=== PATIENT | female | born 1960 | race African-American/Black ===

== ENCOUNTER → 2019-03-06 | Outpatient (CLI) | payer OTHER ==
[2019-03-06 09:24] LABS: Basophils # (auto) 0 uL; Eosinophils # (auto) 0.2 uL; Hemoglobin 11.9 g/dL (12.2-16.2); Monocytes # (auto) 0.4 uL; Neutrophils # (auto) 1.7 uL
[2019-03-06 09:27] LABS: Basophils % (auto) 0.6 % (0.0-2.0); Eosinophils % (auto) 4.6 % (0.0-7.0); Hematocrit 38.3 % (36.0-46.0); Lymphocytes # (auto) 2.3 uL; Lymphocytes % (auto) 49.4 % (10.0-50.0); Mean Corpuscular Hemoglobin 21.6 pg (28.0-32.0); Mean Corpuscular Hgb Conc. 31.1 g/dL (32.0-36.0); Mean Corpuscular Volume 69.5 fL (80.0-100.0); Monocytes % (auto) 9.1 % (0.0-12.0); Neutrophils % (auto) 36.3 % (37.0-80.0); Nucleated Red Blood Cells % 0.1 %; Platelet Count (auto) 284 10^3/uL (140-450); Red Blood Cells 5.51 10^6/uL (4.0-5.20); Red Cell Distribution Width 16.1 % (11.8-14.3); White Blood Cell 4.6 10^3/uL (4.4-10.8)
[2019-03-06 09:52] LABS: Potassium 4.1 mmol/L (3.5-5.1)
[2019-03-06 10:21] LABS: Albumin 3.3 g/dL (3.4-5.0); BUN/Creatinine Ratio 16.7; Bilirubin, Total 0.6 mg/dL (0.2-1.0); Calcium 8.6 mg/dL (8.5-10.1); Total Protein 7.9 g/dL (6.4-8.2)
== END | disposition home or self-care (01) ==
LOC: LAB 08:42
PROVIDERS: ATTEND Internal Medicine
DX: Z12.10 Encounter for screening for malignant neoplasm of intestinal tract, unspecified (principal); E11.42 Type 2 diabetes mellitus with diabetic polyneuropathy; I10 Essential (primary) hypertension
CPT/HCPCS: 36415; 80053; 80061; 82043; 82274; 82306; 83036; 84443; 85025

== ENCOUNTER → 2019-05-21 | Outpatient (CLI) | payer OTHER ==
[2019-05-21 09:27] LABS: Albumin 3.2 g/dL (3.4-5.0); BUN/Creatinine Ratio 17.7; Bilirubin, Total 0.5 mg/dL (0.2-1.0); Calcium 8.3 mg/dL (8.5-10.1); Total Protein 7.3 g/dL (6.4-8.2)
== END | disposition home or self-care (01) ==
LOC: LAB 08:25
PROVIDERS: ATTEND Internal Medicine
DX: E78.5 Hyperlipidemia, unspecified (principal); E55.9 Vitamin D deficiency, unspecified
CPT/HCPCS: 36415; 80053; 80061; 82306

== ENCOUNTER 2019-09-06 09:05 | Emergency (ER) | payer OTHER ==
[~2019-09-06] VITALS: Ht 180.3 cm; Wt 117.9 kg
[2019-09-06 09:16] VITALS: BP 158/81
[2019-09-06] MEDS ORDERED: IBUPROFEN 800 MG TAB PO ONE (10:30)
== END 2019-09-06 10:49 | disposition home or self-care (01) ==
LOC: ER 09:05
DX: S60.221A Contusion of right hand, initial encounter (principal); E11.9 Type 2 diabetes mellitus without complications; E78.5 Hyperlipidemia, unspecified; W22.8XXA Striking against or struck by other objects, initial encounter; Y93.89 Activity, other specified; Y92.89 Other specified places as the place of occurrence of the external cause; Y99.8 Other external cause status
CPT/HCPCS: 73110

== ENCOUNTER → 2019-09-10 | Outpatient (CLI) | payer OTHER ==
[2019-09-10 10:51] LABS: Albumin 3.2 g/dL (3.4-5.0); Potassium 4.1 mmol/L (3.5-5.1)
[2019-09-10 10:58] LABS: BUN/Creatinine Ratio 13.9; Bilirubin, Total 0.5 mg/dL (0.2-1.0); Calcium 8.8 mg/dL (8.5-10.1); Total Protein 7.6 g/dL (6.4-8.2)
== END | disposition home or self-care (01) ==
LOC: LAB 09:58
PROVIDERS: ATTEND Internal Medicine
DX: E11.42 Type 2 diabetes mellitus with diabetic polyneuropathy (principal); E55.9 Vitamin D deficiency, unspecified; I10 Essential (primary) hypertension; E78.5 Hyperlipidemia, unspecified
CPT/HCPCS: 36415; 80053; 80061; 82043; 83036

== ENCOUNTER 2019-12-24 07:04 | Emergency (ER) | payer OTHER ==
[~2019-12-24] VITALS: Ht 180.3 cm; Wt 118.8 kg
[2019-12-24 08:05] LABS: Urine Bacteria FEW /hpf (None Seen); Urine Blood Negative /uL (Negative); Urine Specific Gravity 1.017 (1.001-1.035); Urine WBC 1 /hpf (0 - 5)
[2019-12-24 08:09] LABS: Basophils # (auto) 0 10 ^3/uL (0-0.2); Eosinophils # (auto) 0.3 10 ^3/uL (0-0.8); Hemoglobin 12.3 g/dL (12.2-16.2); Lymphocytes # (auto) 2.4 10 ^3/uL (0.4-5.4); Monocytes # (auto) 0.4 10 ^3/uL (0-1.3); Nucleated Red Blood Cells % 0.2 %
[2019-12-24 08:10] LABS: Basophils % (auto) 0.5 % (0.0-2.0); Eosinophils % (auto) 5.9 % (0.0-7.0); Hematocrit 39.6 % (36.0-46.0); Lymphocytes % (auto) 46.7 % (10.0-50.0); Mean Corpuscular Hemoglobin 21.6 pg (28.0-32.0); Mean Corpuscular Hgb Conc. 31.1 g/dL (32.0-36.0); Mean Corpuscular Volume 69.4 fL (80.0-100.0); Monocytes % (auto) 7.9 % (0.0-12.0); Platelet Count (auto) 323 10^3/uL (140-450); Red Blood Cells 5.71 10^6/uL (4.0-5.20); White Blood Cell 5.2 10^3/uL (4.4-10.8)
[2019-12-24 08:29] LABS: Albumin 3.4 g/dL (3.4-5.0); Calcium 8.6 mg/dL (8.5-10.1)
[2019-12-24 08:33] LABS: BUN/Creatinine Ratio 11.2; Bilirubin, Total 0.4 mg/dL (0.2-1.0); Total Protein 7.6 g/dL (6.4-8.2)
[2019-12-24] MEDS ORDERED: MECLIZINE HCL 25 MG TAB PO ONE (11:30)
[2019-12-24 11:48] VITALS: BP 178/92
== END 2019-12-24 12:41 | disposition home or self-care (01) ==
LOC: ER 07:04
DX: R42 Dizziness and giddiness (principal); E11.9 Type 2 diabetes mellitus without complications; I10 Essential (primary) hypertension; E78.5 Hyperlipidemia, unspecified
CPT/HCPCS: 36415; 70450; 80053; 81001; 82962; 85025; 93005; 99285; J8597

== ENCOUNTER → 2020-02-12 | Outpatient (CLI) | payer OTHER ==
[2020-02-12 10:14] LABS: Basophils # (auto) 0 10 ^3/uL (0-0.2); Eosinophils # (auto) 0.2 10 ^3/uL (0-0.8); Lymphocytes # (auto) 2.5 10 ^3/uL (0.4-5.4); Neutrophils # (auto) 1.4 10 ^3/uL (1.6-8.6); White Blood Cell 4.6 10^3/uL (4.4-10.8)
[2020-02-12 10:16] LABS: Basophils % (auto) 0.3 % (0.0-2.0); Eosinophils % (auto) 4.6 % (0.0-7.0); Hemoglobin 11.4 g/dL (12.2-16.2); Lymphocytes % (auto) 53.4 % (10.0-50.0); Mean Corpuscular Hemoglobin 21.6 pg (28.0-32.0); Mean Corpuscular Hgb Conc. 30.8 g/dL (32.0-36.0); Mean Corpuscular Volume 70.1 fL (80.0-100.0); Monocytes # (auto) 0.5 10 ^3/uL (0-1.3); Monocytes % (auto) 11.2 % (0.0-12.0); Neutrophils % (auto) 30.5 % (37.0-80.0); Nucleated Red Blood Cells % 0.2 %; Platelet Count (auto) 263 10^3/uL (140-450); Red Blood Cells 5.28 10^6/uL (4.0-5.20); Red Cell Distribution Width 16.4 % (11.8-14.3)
[2020-02-12 10:44] LABS: Albumin 3.1 g/dL (3.4-5.0); Calcium 8.9 mg/dL (8.5-10.1); Magnesium 2.4 mg/dL (1.6-2.6); Potassium 3.8 mmol/L (3.5-5.1)
[2020-02-12 10:49] LABS: BUN/Creatinine Ratio 15.7; Bilirubin, Total 0.6 mg/dL (0.2-1.0); Total Protein 7.4 g/dL (6.4-8.2)
== END | disposition home or self-care (01) ==
LOC: LAB 09:50
PROVIDERS: ATTEND Internal Medicine
DX: E11.42 Type 2 diabetes mellitus with diabetic polyneuropathy (principal); I10 Essential (primary) hypertension; E55.9 Vitamin D deficiency, unspecified; E78.5 Hyperlipidemia, unspecified
CPT/HCPCS: 36415; 80053; 80061; 82043; 82274; 82306; 83036; 83735; 84443; 85025

== ENCOUNTER 2022-06-18 09:18 | Emergency (ER) | payer OTHER ==
[~2022-06-18] VITALS: Ht 180.3 cm; Wt 117.5 kg
[2022-06-18 09:39] VITALS: BP 179/105
[2022-06-18] MEDS ORDERED: cloNIDine HCL 0.1 MG TAB PO ONE (10:00)
[2022-06-18] MEDS ORDERED: LISINOPRIL 10 MG TAB PO ONE (10:00)
[2022-06-18] MEDS ORDERED: KETOROLAC TROMETH 60MG/2ML VIAL IM ONE (10:30)
[2022-06-18] MEDS ORDERED: HYDR-4902 PO (11:41)
[2022-06-18] MEDS ORDERED: LISI20TA28 PO (11:41)
== END 2022-06-18 11:50 | disposition home or self-care (01) ==
LOC: ER 09:18
DX: M17.11 Unilateral primary osteoarthritis, right knee (principal); I10 Essential (primary) hypertension; E11.9 Type 2 diabetes mellitus without complications; E78.5 Hyperlipidemia, unspecified
CPT/HCPCS: 73562; 93005; 96372; 99283; J1885

== ENCOUNTER → 2022-08-02 | Outpatient (CLI) | payer BC ==
[~2022-08-02] MED LIST: HYDR-4902 PO; LISI20TA28 PO
[2022-08-02 07:55] LABS: Basophils # (auto) 0 10 ^3/uL (0-0.2); Monocytes # (auto) 0.5 10 ^3/uL (0-1.3); Neutrophils # (auto) 1.7 10 ^3/uL (1.6-8.6)
[2022-08-02 07:57] LABS: Basophils % (auto) 0.6 % (0.0-2.0); Eosinophils # (auto) 0.2 10 ^3/uL (0-0.8); Hematocrit 36.7 % (36.0-46.0); Hemoglobin 11.1 g/dL (12.2-16.2); Lymphocytes % (auto) 45.3 % (10.0-50.0); Mean Corpuscular Hgb Conc. 30.2 g/dL (32.0-36.0); Mean Corpuscular Volume 69.8 fL (80.0-100.0); Monocytes % (auto) 10.8 % (0.0-12.0); Neutrophils % (auto) 38.3 % (37.0-80.0); Nucleated Red Blood Cells % 0.1 %; Red Blood Cells 5.26 10^6/uL (4.0-5.20); Red Cell Distribution Width 16.2 % (11.8-14.3); White Blood Cell 4.4 10^3/uL (4.4-10.8)
[2022-08-02 08:09] LABS: Urine Blood Negative /uL (Negative); Urine Specific Gravity 1.024 (1.001-1.035)
[2022-08-02 08:22] LABS: Potassium 3.9 mmol/L (3.5-5.1)
[2022-08-02 08:30] LABS: Albumin 3.4 g/dL (3.4-5.0); BUN/Creatinine Ratio 18.9; Bilirubin, Total 0.4 mg/dL (0.2-1.0); Calcium 8.7 mg/dL (8.5-10.1); Creatinine, Urine 176 mg/dL (30.0-125.0); Total Protein 7.2 g/dL (6.4-8.2)
== END | disposition home or self-care (01) ==
LOC: LAB 07:28
PROVIDERS: ATTEND Internal Medicine
DX: E11.9 Type 2 diabetes mellitus without complications (principal); E66.9 Obesity, unspecified
CPT/HCPCS: 36415; 80053; 80061; 81003; 82043; 82570; 83036; 84439; 84443; 85025

== ENCOUNTER → 2022-08-06 | Outpatient (CLI) | payer BC ==
[2022-08-06 07:14] LABS: Albumin 3.1 g/dL (3.4-5.0); BUN/Creatinine Ratio 21.7; Calcium 8.5 mg/dL (8.5-10.1); Potassium 3.5 mmol/L (3.5-5.1)
[2022-08-06 07:17] LABS: Bilirubin, Total 0.5 mg/dL (0.2-1.0); Total Protein 7.1 g/dL (6.4-8.2)
== END | disposition home or self-care (01) ==
LOC: LAB 06:29
PROVIDERS: ATTEND Internal Medicine
DX: D64.9 Anemia, unspecified (principal); Z79.811 Long term (current) use of aromatase inhibitors
CPT/HCPCS: 36415; 80053; 82728; 83540; 83550

== ENCOUNTER → 2022-08-25 | Outpatient (CLI) | payer BC ==
[2022-08-25 07:05] LABS: BUN/Creatinine Ratio 21.6; Calcium 8.7 mg/dL (8.5-10.1); Potassium 3.8 mmol/L (3.5-5.1)
== END | disposition home or self-care (01) ==
LOC: LAB 06:23
PROVIDERS: ATTEND Internal Medicine
DX: I10 Essential (primary) hypertension (principal)
CPT/HCPCS: 36415; 80048

== ENCOUNTER 2022-11-06 12:45 | Emergency (ER) | payer BC, OTHER ==
[~2022-11-06] VITALS: Ht 180.3 cm; Wt 83.0 kg
[~2022-11-06 12:45] MED LIST changes: +BENZ100C19 PO; +IBUP800T27 PO
[2022-11-06 14:42] VITALS: BP 163/87
[2022-11-06] MEDS ORDERED: KETOROLAC TROMETH 60MG/2ML VIAL IM ONE (14:45)
[2022-11-06] MEDS ORDERED: IBUP800T27 PO (15:00)
[2022-11-06] MEDS ORDERED: METH750T22 PO (15:00)
[2022-11-07] MEDS ORDERED: POTA1TAB61 PO (10:10)
== END 2022-11-06 15:10 | disposition home or self-care (01) ==
LOC: ER 12:45 → EEVIPCON 12:45 → ER 15:09
DX: E11.43 Type 2 diabetes mellitus with diabetic autonomic (poly)neuropathy (principal); E78.5 Hyperlipidemia, unspecified; I10 Essential (primary) hypertension; Z79.899 Other long term (current) drug therapy
CPT/HCPCS: 93971; 96372; 99285; J1885

== ENCOUNTER → 2022-11-24 | Outpatient (CLI) | payer BC ==
[~2022-11-24] MED LIST changes: +METH750T22 PO; +POTA1TAB61 PO
[2022-11-24 12:18] LABS: Calcium 9.5 mg/dL (8.5-10.1); Potassium 4.2 mmol/L (3.5-5.1)
[2022-11-24 12:25] LABS: BUN/Creatinine Ratio 20.8 (10.0-20.0)
== END | disposition home or self-care (01) ==
LOC: LAB 11:14
PROVIDERS: ATTEND Internal Medicine
DX: I10 Essential (primary) hypertension (principal)
CPT/HCPCS: 36415; 80048; 82550

== ENCOUNTER 2023-04-06 08:07 | Emergency (ER) | payer BC, OTHER ==
[~2023-04-06] VITALS: Ht 180.3 cm; Wt 117.7 kg
[~2023-04-06 08:07] MED LIST changes: +DICL1GEL59 EX; +FURO1TAB31 PO; +IBUP-1456 PO; -IBUP800T27 PO; -LISI20TA28 PO; +LISI20TA56 PO; +METH-1182 PO; -METH750T22 PO
[2023-04-06 08:34] VITALS: BP 187/88; PULSE 82; RESP 18; TEMP 97.8; O2SAT 99
[2023-04-06] MEDS ORDERED: HYDR-4902 PO (09:56)
[2023-04-06] MEDS ORDERED: HYDROcodone-ACET 5/325MG TAB PO ONE (10:00)
[2023-04-06] MEDS ORDERED: IBUP1TAB4 PO (10:12)
[2023-04-06] MEDS ORDERED: IBUPROFEN 600 MG TAB PO ONE (10:15)
== END 2023-04-06 10:34 | disposition home or self-care (01) ==
LOC: ER 08:07
DX: S43.401A Unspecified sprain of right shoulder joint, initial encounter (principal); S83.91XA Sprain of unspecified site of right knee, initial encounter; M17.11 Unilateral primary osteoarthritis, right knee; I10 Essential (primary) hypertension; E11.9 Type 2 diabetes mellitus without complications; E78.5 Hyperlipidemia, unspecified; Z79.1 Long term (current) use of non-steroidal anti-inflammatories (NSAID); Z79.899 Other long term (current) drug therapy; Z88.8 Allergy status to other drugs, medicaments and biological substances; W07.XXXA Fall from chair, initial encounter; Y93.89 Activity, other specified; Y92.89 Other specified places as the place of occurrence of the external cause; Y99.8 Other external cause status
CPT/HCPCS: 29505; 73030; 73562

== ENCOUNTER → 2023-05-05 | Outpatient (CLI) | payer BC ==
[~2023-05-05] MED LIST changes: +ACET-1080 PO; +IBUP1TAB4 PO
[2023-05-05 14:02] LABS: Hemoglobin 11.5 g/dL (12.2-16.2); Mean Corpuscular Volume 70.4 fL (80.0-100.0)
[2023-05-05 14:03] LABS: Hematocrit 37.1 % (36.0-46.0); Mean Corpuscular Hemoglobin 21.8 pg (28.0-32.0); Red Blood Cells 5.27 10^6/uL (4.0-5.20); Red Cell Distribution Width 15.3 % (11.8-14.3)
[2023-05-05 14:08] LABS: Basophils % (manual) 0 (0.0-2.0); Blast Cells 0; Metamyelocytes % 0; Myelocytes % 0; Promyelocytes % 0; Reactive Lymphocytes 0
[2023-05-05 14:28] LABS: Potassium 3.9 mmol/L (3.5-5.1)
[2023-05-05 14:29] LABS: Calcium 9.3 mg/dL (8.7-10.4)
[2023-05-05 14:33] LABS: Uric Acid 5.4 mg/dL (3.1-7.8)
[2023-05-05 14:34] LABS: BUN/Creatinine Ratio 12.8 (10.0-20.0)
[2023-05-05 14:36] LABS: Albumin 4.3 g/dL (3.2-4.8); Phosphorus 3.3 mg/dL (2.4-5.1)
[2023-05-05 14:57] LABS: Urine Bacteria NONE SEEN /hpf (None Seen); Urine Blood Negative /uL (Negative); Urine Clarity HAZY (Clear); Urine Color Yellow (Yellow); Urine Mucus FEW (None Seen); Urine Protein, UAD Negative (Negative); Urine Specific Gravity 1.024 (1.001-1.035); Urine WBC <1 /hpf (0 - 5); Urine pH 5.5 (5.0-8.0)
[2023-05-05 15:01] LABS: Band Neutrophils % (manual) 1; Eosinophils % (manual) 1 (0-7); Lymphocytes % (manual) 54 (10.0-50.0); Monocytes % (manual) 5 (0-12)
[2023-05-05 15:03] LABS: Hypochromia Moderate; Platelet Estimate Adequate
[2023-05-05 15:17] LABS: Protein, Urine < 6.0 mg/dL (0.0-11.9)
[2023-05-05 15:20] LABS: Creatinine, Urine 210.15 mg/dL (30.0-125.0); Urine Protein/Creatinine Ratio 0.03
== END | disposition home or self-care (01) ==
LOC: LAB 13:51
PROVIDERS: ATTEND Internal Medicine
DX: E11.22 Type 2 diabetes mellitus with diabetic chronic kidney disease (principal); N18.31 Chronic kidney disease, stage 3a; D63.1 Anemia in chronic kidney disease; E21.3 Hyperparathyroidism, unspecified; E78.5 Hyperlipidemia, unspecified; M10.9 Gout, unspecified; R80.9 Proteinuria, unspecified; R82.90 Unspecified abnormal findings in urine
CPT/HCPCS: 36415; 80069; 81001; 82306; 82570; 83036; 83970; 84156; 84550; 85007; 85027

== ENCOUNTER → 2023-07-08 | Outpatient (CLI) | payer BC ==
[2023-07-08 07:17] LABS: Basophils # (auto) 0 10 ^3/uL (0-0.2); Eosinophils # (auto) 0.2 10 ^3/uL (0-0.8); Eosinophils % (auto) 3.4 % (0.0-7.0); Hemoglobin 11.3 g/dL (12.2-16.2); Mean Corpuscular Hemoglobin 21.7 pg (28.0-32.0); Mean Corpuscular Hgb Conc. 31.1 g/dL (32.0-36.0); Monocytes # (auto) 0.5 10 ^3/uL (0-1.3); Neutrophils # (auto) 2.1 10 ^3/uL (1.6-8.6); Nucleated Red Blood Cells % 0.1 %
[2023-07-08 07:20] LABS: Basophils % (auto) 0.5 % (0.0-2.0); Hematocrit 36.3 % (36.0-46.0); Lymphocytes # (auto) 2.2 10 ^3/uL (0.4-5.4); Lymphocytes % (auto) 44.8 % (10.0-50.0); Mean Corpuscular Volume 69.7 fL (80.0-100.0); Monocytes % (auto) 9.4 % (0.0-12.0); Neutrophils % (auto) 41.9 % (37.0-80.0); Red Blood Cells 5.21 10^6/uL (4.0-5.20)
[2023-07-08 07:53] LABS: Alanine Aminotransferase 13 U/L (7-40); Albumin 4.2 g/dL (3.2-4.8); Alkaline Phosphatase 118 U/L (46-116); Anion Gap 8 (5-15); Aspartate Aminotransferase 17 U/L (13-40); Blood Urea Nitrogen 9 mg/dL (9-23); Calcium 8.9 mg/dL (8.5-10.1); Carbon Dioxide 26 mmol/L (20-30); Chloride 108 mmol/L (98-107); Cholesterol 196 mg/dL (< 200); Glucose 132 mg/dL (74-106); HDL Cholesterol 40 mg/dL (40-59); LDL Cholesterol 151 mg/dL (< 100); Potassium 3.9 mmol/L (3.5-5.1); Sodium 142 mmol/L (136-145); Triglycerides 116 mg/dL (< 150)
[2023-07-08 07:54] LABS: Bilirubin, Total 0.6 mg/dL (0.2-1.0)
== END | disposition home or self-care (01) ==
LOC: LAB 07:06
PROVIDERS: ATTEND Internal Medicine
DX: Z00.01 Encounter for general adult medical examination with abnormal findings (principal); I10 Essential (primary) hypertension; E11.42 Type 2 diabetes mellitus with diabetic polyneuropathy; E78.5 Hyperlipidemia, unspecified
CPT/HCPCS: 36415; 80053; 80061; 83036; 85025

== ENCOUNTER → 2023-11-04 | Outpatient (CLI) | payer BC ==
[~2023-11-04] MED LIST changes: +DOCU-94 PO; +LIDO5PAD12 EX; +POTA-215 PO; -POTA1TAB61 PO
[2023-11-04 07:30] LABS: Urine Bacteria None Seen /hpf (None Seen)
[2023-11-04 07:46] LABS: Potassium 3.5 mmol/L (3.5-5.1)
[2023-11-04 07:47] LABS: Calcium 9.4 mg/dL (8.7-10.4)
[2023-11-04 07:51] LABS: Uric Acid 5.1 mg/dL (3.1-7.8)
[2023-11-04 07:52] LABS: BUN/Creatinine Ratio 13.2 (10.0-20.0)
[2023-11-04 07:54] LABS: Albumin 4.3 g/dL (3.2-4.8); Phosphorus 3.4 mg/dL (2.4-5.1)
[2023-11-04 11:11] LABS: Creatinine, Urine 239.26 mg/dL (30.0-125.0); Protein, Urine 25.2 mg/dL (0.0-11.9); Urine Protein/Creatinine Ratio 0.11
[2023-11-04 12:08] LABS: Urine Blood Negative /uL (Negative); Urine Budding Yeast OCCASIONAL /hpf (None Seen); Urine Clarity Clear (Clear); Urine Color Yellow (Yellow); Urine Mucus FEW (None Seen); Urine Protein, UAD Negative (Negative); Urine Specific Gravity 1.022 (1.001-1.035); Urine Urobilinogen Normal (Negative); Urine WBC <1 /hpf (0 - 5)
[2023-11-07 10:06] LABS: Aldolase 6.2 U/L (3.3-10.3)
== END | disposition home or self-care (01) ==
LOC: LAB 07:20
PROVIDERS: ATTEND Internal Medicine
DX: E11.22 Type 2 diabetes mellitus with diabetic chronic kidney disease (principal); N18.31 Chronic kidney disease, stage 3a; E27.40 Unspecified adrenocortical insufficiency; R80.9 Proteinuria, unspecified; R82.90 Unspecified abnormal findings in urine; D63.1 Anemia in chronic kidney disease; E21.3 Hyperparathyroidism, unspecified; E78.5 Hyperlipidemia, unspecified; M10.9 Gout, unspecified; E88.09 Other disorders of plasma-protein metabolism, not elsewhere classified
CPT/HCPCS: 36415; 80069; 81001; 82085; 82088; 82306; 82570; 83036; 83970; 84156; 84244; 84550

== ENCOUNTER → 2023-12-05 | Outpatient (CLI) | payer BC ==
[2023-12-05 09:05] LABS: Urine Bacteria None Seen /hpf (None Seen)
[2023-12-05 09:10] LABS: Basophils # (auto) 0 10 ^3/uL (0-0.2); Eosinophils # (auto) 0.2 10 ^3/uL (0-0.8); Monocytes # (auto) 0.6 10 ^3/uL (0-1.3)
[2023-12-05 09:11] LABS: Basophils % (auto) 0.4 % (0.0-2.0); Eosinophils % (auto) 2.9 % (0.0-7.0); Hemoglobin 11.9 g/dL (12.2-16.2); Lymphocytes # (auto) 3.1 10 ^3/uL (0.4-5.4); Lymphocytes % (auto) 52.1 % (10.0-50.0); Mean Corpuscular Hemoglobin 21.3 pg (28.0-32.0); Mean Corpuscular Hgb Conc. 30.6 g/dL (32.0-36.0); Mean Corpuscular Volume 69.5 fL (80.0-100.0); Monocytes % (auto) 10.8 % (0.0-12.0); Neutrophils % (auto) 33.8 % (37.0-80.0); Nucleated Red Blood Cells % 0.1 %; Red Blood Cells 5.61 10^6/uL (4.0-5.20); Red Cell Distribution Width 16.1 % (11.8-14.3); Urine Blood Negative /uL (Negative); Urine Clarity Clear (Clear); Urine Color Yellow (Yellow); Urine Mucus FEW (None Seen); Urine Protein, UAD TRACE (Negative); Urine Urobilinogen 3 mg/dL (Negative); Urine WBC <1 /hpf (0 - 5)
[2023-12-05 09:35] LABS: Albumin 4.5 g/dL (3.2-4.8); Alkaline Phosphatase 132 U/L (46-116); Anion Gap 5 (5-15); Aspartate Aminotransferase 12 U/L (13-40); BUN/Creatinine Ratio 16.7 (10.0-20.0); Bilirubin, Total 0.6 mg/dL (0.2-1.0); Blood Urea Nitrogen 14 mg/dL (9-23); Calcium 9.7 mg/dL (8.5-10.1); Carbon Dioxide 30 mmol/L (20-30); Chloride 105 mmol/L (98-107); Cholesterol 218 mg/dL (< 200); Glucose 123 mg/dL (74-106); HDL Cholesterol 44 mg/dL (40-59); LDL Cholesterol 159 mg/dL (< 100); Potassium 3.5 mmol/L (3.5-5.1); Sodium 140 mmol/L (136-145); Total Protein 7.7 g/dL (5.7-8.2); Triglycerides 124 mg/dL (< 150)
[2023-12-05 09:37] LABS: Stomatocytes Few
[2023-12-05 09:38] LABS: Alanine Aminotransferase < 9 U/L (7-40); Hypochromia Slight; Platelet Estimate Adequate
[2023-12-05 09:39] LABS: Creatinine, Urine 241.61 mg/dL (30.0-125.0)
== END | disposition home or self-care (01) ==
LOC: LAB 08:57
PROVIDERS: ATTEND Internal Medicine
DX: I12.9 Hypertensive chronic kidney disease with stage 1 through stage 4 chronic kidney disease, or unspecified chronic kidney disease (principal); E11.22 Type 2 diabetes mellitus with diabetic chronic kidney disease; N18.1 Chronic kidney disease, stage 1; E11.69 Type 2 diabetes mellitus with other specified complication; E11.42 Type 2 diabetes mellitus with diabetic polyneuropathy; E78.5 Hyperlipidemia, unspecified; D50.9 Iron deficiency anemia, unspecified; E55.9 Vitamin D deficiency, unspecified; E87.6 Hypokalemia
CPT/HCPCS: 36415; 80053; 80061; 81001; 82043; 82306; 82570; 83036; 84439; 84443; 85025

== ENCOUNTER 2023-12-29 14:43 | Emergency (ER) | payer BC ==
[~2023-12-29] VITALS: Ht 180.3 cm; Wt 111.3 kg
[~2023-12-29 14:43] MED LIST changes: +MECL1TAB42 PO
[2023-12-29] MEDS: IBUPROFEN 800 MG TAB PO ONE (15:12)
[2023-12-29] MEDS ORDERED: amLODIPine BESYLATE 5 MG TAB PO ONE (15:15)
[2023-12-29] MEDS: amLODIPine BESYLATE 5 MG TAB PO ONE (15:16)
[2023-12-29 15:22] VITALS: BP 189/93; PULSE 97; RESP 19; O2SAT 98
[2023-12-29] MEDS ORDERED: IBU600T PO (15:25)
== END 2023-12-29 16:48 | disposition home or self-care (01) ==
LOC: EEVIPCON 14:43 → ER 14:43
DX: S16.1XXA Strain of muscle, fascia and tendon at neck level, initial encounter (principal); I10 Essential (primary) hypertension; E11.9 Type 2 diabetes mellitus without complications; E78.5 Hyperlipidemia, unspecified; Z79.899 Other long term (current) drug therapy; Z88.8 Allergy status to other drugs, medicaments and biological substances; Z79.1 Long term (current) use of non-steroidal anti-inflammatories (NSAID); X58.XXXA Exposure to other specified factors, initial encounter; Y93.89 Activity, other specified; Y92.89 Other specified places as the place of occurrence of the external cause; Y99.8 Other external cause status
CPT/HCPCS: 72125

== ENCOUNTER → 2024-03-08 | Outpatient (CLI) | payer BC ==
[~2024-03-08] MED LIST changes: +IBU600T PO; +SCOP1DIS TD
[2024-03-08 12:49] LABS: Alkaline Phosphatase 126 U/L (46-116); Anion Gap 4 (5-15); Aspartate Aminotransferase 14 U/L (13-40); BUN/Creatinine Ratio 8.6 (10.0-20.0); Blood Urea Nitrogen 7 mg/dL (9-23); Calcium 9.4 mg/dL (8.7-10.4); Carbon Dioxide 29 mmol/L (20-30); Chloride 109 mmol/L (98-107); Glucose 118 mg/dL (74-106); Sodium 142 mmol/L (136-145)
[2024-03-08 12:50] LABS: Bilirubin, Total 0.9 mg/dL (0.2-1.0); Creatine Kinase IFCC 77 U/L (34-145); Total Protein 7.1 g/dL (5.7-8.2)
[2024-03-08 13:03] LABS: Alanine Aminotransferase < 9 U/L (7-40)
== END | disposition home or self-care (01) ==
LOC: LAB 11:27
PROVIDERS: ATTEND Internal Medicine
DX: E11.69 Type 2 diabetes mellitus with other specified complication (principal)
CPT/HCPCS: 36415; 80053; 82550

== ENCOUNTER 2024-06-22 09:18 | Inpatient (IN) | payer BC ==
[~2024-06-22] VITALS: Ht 180.3 cm; Wt 106.1 kg
[~2024-06-22 09:18] MED LIST changes: +CLOB0.05 TOP
--- NOTE | 2024-06-22 09:49 | ED.PDOC ---
General HPI Comments A 64 YEAR OLD FEMALE PRESENTS TO THE ED WITH COMPLAINT OF RIGHT FLANK PAIN. PATIENT STATES SHE HAS A HISTORY OF KIDNEY STONES IN THE PAST AND BEGAN TO EXPERIENCE RIGHT FLANK PAIN TODAY WHEN SHE WOKE UP. RIGHT FLANK PAIN RADIATES TO RIGHT MIDDLE ABD. PT WENT TO HER PCP THIS MORNING AND DID ABD US AND DIAGNOSED GALLSTONE WITH CHOLECYSTITIS. PATIENT DENIES DYSURIA, HEMATURIA, FEVER, CHILLS, SHORTNESS OF BREATH, CHEST PAIN, ABDOMINAL PAIN, NAUSEA, VOMITING, HEADACHE, OR OTHER COMPLAINTS. NO OTHER SYMPTOMS OR MODIFYING FACTORS AT THIS TIME. PATIENT IS ALERT, ORIENTED X 4, AND HAS STEADY GAIT. Chief Complaint: Flank Pain Time Seen by MD: 09:41 Primary Care Provider: Lorenza Reviewed notes: Nurses Notes, Medications, Allergies Allergies: Coded Allergies: Gabapentin (Verified Allergy, Unknown, 04/06/23) Home Meds Active Scripts Clobetasol Propionate (Clobetasol Propionate) 0.05 % Oin, 1 APPLIC TOP BID, #60 GRAMS 1 Refill Prov:MALLIKA POLLOCK 04/12/24 Methocarbamol (Methocarbamol) 750 Mg Tab, 750 MG PO QHSP PRN, #30 TAB Prov:MALLIKA POLLOCK 02/25/24 Meclizine HCl (Meclizine 25) 25 Mg Tab, 25 MG PO BID, #30 TAB Prov:MALLIKA POLLOCK 12/23/23 Docusate Sodium (Colace) 100 Mg Cap, 1 CAP PO BID, #60 CAP Prov:MALLIKA POLLOCK 24 Acetaminophen (Tylenol 8 Hour Arthritis) 650 Mg Tab, 650 MG PO TID, #60 TAB Prov:MALLIKA POLLOCK 07/07/23 Potassium Chloride (Klor-Con M10) 10 Meq Tab, 1 TAB PO DAILY, #30 TAB 1 Refill Prov:MALLIKA POLLOCK 03/18/23 Furosemide (Lasix) 40 Mg Tab, 40 MG PO DAILY PRN, #15 TAB Prov:MALLIKA POLLOCK 03/18/23 Diclofenac Sodium (Topical) (Voltaren Arthritis Pain) 1 % Gel, 1 % EX BID, #60 GEL Prov:MALLIKA POLLOCK 03/11/23 Ibuprofen (Ibuprofen) 800 Mg Tab, 1 TAB PO TID, #30 TAB Prov:MALLIKA POLLOCK 11/06/22 Hydrocodone-Acetaminophen (Hydrocodone Bitartrate/AC 5-325 mg) 1 Tab Tab, 1 TAB PO BID, #20 TAB Prov:MALLIKA POLLOCK 06/18/22 Reported Medications Ergocalciferol (Vitamin D) 50,000 Unit Cap, 1 CAP PO QWEEKLY 06/22/24 Metoprolol Succinate (Metoprolol Succinate Er) 100 Mg Tab, 1 TAB PO DAILY 06/22/24 Hctz (Hydrochlorothiazide) 25 Mg Tab, 1 TAB PO DAILY 06/22/24 Lisinopril (Lisinopril) 40 Mg Tab, 1 TAB PO DAILY 06/22/24 Nifedipine (Nifedipine Er) 90 Mg Tab, 1 TAB PO DAILY 06/22/24 Metformin Hydrochloride (Metformin Hcl) 1,000 Mg Tab, 1 TAB PO BID 06/22/24 Discontinued Scripts Scopolamine (Transderm-Scop) 1 Mg/3 Days Dis, 1 MG TD DAILY PRN for 3 Days, #3 PATCH 1 Refill Prov:MALLIKA POLLOCK 01/06/24 Ibuprofen Micronized (MOTRIN TABLET) 600 Mg Tb, 600 MG PO TID PRN for 5 Days, #15 TAB *Black box warning-NSAIDS can increase risk of ID & hypertension, GI irritation, ulceration, bleed, perferation. Do not use post cardiac surgery. Use short duration/lowest effective dose. Prov:KHANH CUNHA MD 12/29/23 Lidocaine (Lidocaine Patch 5%) 5 % Pad, 5 % EX DAILY, #30 PAD 1 Refill Prov:MALLIKA POLLOCK 10/22/23 Acetaminophen (Tylenol 8 Hour Arthritis) 650 Mg Tab, 650 MG PO BID, #60 TAB Prov:MALLIKA POLLOCK 04/22/23 Ibuprofen Micronized (Ibuprofen) 400 Mg Tab, 1 TAB PO Q8HR, #10 TAB as needed for pain Prov:JOHN DUGAN [employer]HOUSE LEAD 04/06/23 Ibuprofen (Ibuprofen) 800 Mg Tab, 1 TAB PO TID, #60 TAB Prov:MALLIKA POLLOCK 10/23/22 Benzonatate (Tessalon Perles) 100 Mg Cap, 200 MG PO TID, #30 CAP Prov:MALLIKA POLLOCK 09/01/22 Lisinopril (Lisinopril) 20 Mg Tab, 20 MG PO BID PRN, #40 TAB Prov:MALLIKA POLLOCK 06/18/22 Information Source: Patient Mode of Arrival: Ambulatory Severity: Moderate Inability to void: None Timing: Hours Duration: Since onset, Hours Prehospital treatment: None Onset: Spontaneous Symptoms: Other (RIGHT FLANK PAIN) History of: None Location: (R) Flank Modifying factors: None associated signs and symptoms: Abdominal Pain, Flank Pain Past Medical History PAST MEDICAL HISTORY: DM, High Lipids, HTN Surgical History: Denies all surgeries 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 Family History Family History: Reviewed,noncontributory to illness Social History Smoker: Non-Smoker Alcohol: Denies ETOH Use Drugs: Denies Drug Use Lives In: Home Constitutional: denies: chills, diaphoresis, fatigue, fever, malaise, sweats, weakness, others EENTM: denies: blurred vision, double vision, ear bleeding, ear discharge, ear drainage, ear pain, ear ringing, eye pain, eye redness, hearing loss, mouth pain, mouth swelling, nasal discharge, nose bleeding, nose congestion, nose pain, photophobia, tearing, throat pain, throat swelling, voice changes, others Respiratory: denies: cough, hemoptysis, orthopnea, SOB at rest, shortness of breath, SOB with excertion, stridor, wheezing, others Cardiovascular: denies: chest pain, dizzy spells, diaphoresis, Dyspnea on exertion, edema, irregular heart beat, left arm pain, lightheadedness, palpitations, PND, syncope, others Gastrointestinal: reports: abdominal pain; denies: abdomen distended, blood streaked bowels, constipated, diarrhea, dysphagia, difficulty swallowing, hematemesis, melena, nausea, poor appetite, poor fluid intake, rectal bleeding, rectal pain, vomiting, others Genitourinary: reports: flank pain (RIGHT FLANK PAIN); denies: abnormal vagina bleeding, burning, dyspareunia, dysuria, frequency, hematuria, incontinence, pain, , vagina discharge, urgency, others Neurological: denies: dizziness, fainting, headache, left sided numbness, left sided weakness, numbness, paresthesia, pre-existing deficit, right sided numbness, right sided weakness, seizure, speech problems, tingling, tremors, w eakness, others Musculoskeletal: denies: back pain, gout, joint pain, joint swelling, muscle pain, muscle stiffness, neck pain, others Integumetry: denies: bruises, change in color, change in hair/nails, dryness, laceration, lesions, lumps, rash, wounds, others Allergic/Immunocompromised: denies: Difficulty Healing, Frequent Infections, Hives, Itching, others Hematologic/Lymphatic: denies: anemia, blood clots, easy bleeding, easy bruising, swollen glands, others Endocrine: denies: excessive hunger, excessive sweating, excessive thirst, excessive urination, flushing, intolerance to cold, intolerance to heat, unexplained weight gain, unexplained weight loss, others Psychiatric: denies: anxiety, bipolar disorder, depression, hopeless, panic disorder, schizophrenia, sleepless, suicidal, others All Other Systems: Reviewed and Negative Physical Exam General Appearance: No Apparent Distress, Normal HEENT: Normal ENT Inspection, PERRL/EOMI, Pharynx Normal, TMs Normal Neck: Full Range of Motion, Non-Tender, Normal, Normal Inspection Respiratory: Chest Non-Tender, Lungs Clear, No Accessory Muscle Use, No Respiratory Distress, Normal Breath Sounds Cardiovascular: No Edema, No JVD, No Murmur, No Gallop, Normal Peripheral Pulses, Regular Rate/Rhythm Breast Exam: Deferred Gastrointestinal: No Organomegaly, No Pulsatile Mass, Normal Bowel Sounds, Soft, Tenderness (RIGHT MIDDLE AND, NO GUARDING AND REBOUND TENDERNESS. 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 Was a procedure done?: No Differential Diagnosis Kidney stone (Female): Cholelithiasis, Musculoskeletal pain, Pyelonephritis, Renal failure, Strain, Urolithiasis Kidney stone (Male): Cholelithiasis, Hepatitis, Cholangitis Penile/Scrotal: N/A Urinary Problem (Male): N/A Urinary Problem (Female): N/A X-Ray, Labs, Meds, VS Vital Signs Date Time Temp Pulse Resp B/P (MAP) Pulse Ox O2 Delivery O2 Flow Rate FiO2 06/22/24 12:38 74 17 139/78 (98) 98 06/22/24 10:00 100 18 98 Room Air 06/22/24 10:00 97.9 100 18 115/57 (76) 98 97.9 06/22/24 09:34 97.9 100 18 115/57 (76) 98 Lab Test 06/22/24 11:32 06/22/24 10:30 Range/Units Urine Color Light-yellow Yellow Urine Clarity Clear Clear Urine pH 5.5 5.0-9.0 Urine Specific [place] 1.015 1.001-1.035 Urine Protein Negative Negative Urine Ketones Negative Negative Urine Blood Negative Negative /uL Urine Nitrite Negative Negative Urine Bilirubin Negative Negative Urine Urobilinogen Normal Negative mg/dL Urine Leukocyte Esterase Negative Negative /uL Urine RBC <1 0 - 4 /hpf Urine WBC 2 0 - 5 /hpf Urine Squamous Epithelial Cells Few <5 /hpf Urine Bacteria None seen None Seen /hpf Urine Glucose Normal Normal mg/dL White Blood Count 9.0 4.4-10.8 10^3/uL Red Blood Count 5.38 H 4.0-5.20 10^6/uL Hemoglobin 11.7 L 12.2-16.2 g/dL Hematocrit 37.1 36.0-46.0 % Mean Corpuscular Volume 69.0 L 80.0-100.0 fL Mean Corpuscular Hemoglobin 21.8 L 28.0-32.0 pg Mean Corpuscular Hemoglobin Concent 31.6 L 32.0-36.0 g/dL Red Cell Distribution Width 16.4 H 11.8-14.3 % Platelet Count 277 140-450 10^3/uL Mean Platelet Volume 8.0 6.9-10.8 fL Neutrophils (%) (Auto) 66.8 37.0-80.0 % Lymphocytes (%) (Auto) 24.5 10.0-50.0 % Monocytes (%) (Auto) 7.6 0.0-12.0 % Eosinophils (%) (Auto) 0.9 0.0-7.0 % Basophils (%) (Auto) 0.2 0.0-2.0 % Neutrophils # (Auto) 6.0 1.6-8.6 10 ^3/uL Lymphocytes # (Auto) 2.2 0.4-5.4 10 ^3/uL Monocytes # (Auto) 0.7 0-1.3 10 ^3/uL Eosinophils # (Auto) 0.1 0-0.8 10 ^3/uL Basophils # (Auto) 0 0-0.2 10 ^3/uL Nucleated Red Blood Cells 0.0 % Platelet Estimate Adequate Hypochromasia (manual) Slight Anisocytosis (manual) Slight Microcytosis Slight Sodium Level 138 136-145 mmol/L Potassium Level 4.1 3.5-5.1 mmol/L Chloride Level 102 98-107 mmol/L Carbon Dioxide Level 30 20-31 mmol/L Anion Gap 6 5-15 Blood Urea Nitrogen 16 9-23 mg/dL Creatinine 0.81 0.550-1.02 mg/dL Glomerular Filtration Rate Calc 80 >90 mL/min BUN/Creatinine Ratio 19.8 10.0-20.0 Serum Glucose 124 H 74-106 mg/dL Calcium Level 9.6 8.7-10.4 mg/dL Total Bilirubin 0.9 0.2-1.0 mg/dL Aspartate Amino Transferase (AST) 9 L 13-40 U/L Alanine Aminotransferase (ALT) 10 7-40 U/L Alkaline Phosphatase 130 H 46-116 U/L Total Protein 7.1 5.7-8.2 g/dL Albumin 4.1 3.2-4.8 g/dL Current Medications Medications (Trade) Dose Ordered Sig/Garth Route Start Time Stop Time Status Last Admin Sodium Chloride 1,000 ml @ 1,000 mls/hr Q1H ONCE IV 06/22/24 11:30 06/22/24 12:29 DC 06/22/24 12:11 CT ABDOMEN AND PELVIS WITHOUT CONTRAST CLINICAL HISTORY: RIGHT FLANK PAIN, HX OF KIDNEY STONE TECHNIQUE: Multiple contiguous axial images of the abdomen and pelvis without intravenous contrast. The images were reformatted degenerate coronal and s agittal reconstructions. All CT scans at this medical facility are performed using dose modulation techniques as appropriate to a performed exam including the following:Automated exposure control was utilized; adjustment of the MA and/or KV according to p atient size; and use of iterative reconstruction technique. Radiation Dose Information: CT Dose: CTDI volume is 25 mGy. Dose-length product is 1182 mGy*cm Comparison: None FINDINGS: Evaluation of the abdomen and pelvis is limited without intravenous contrast. There is no evidence of a radiopaque renal calculus. There is no hydronephrosis. There is no evidence of a ureteral calculus or hydroureter. The liver, gallbladder, pancreas, adrenal glands, and spleen appear within normal limits. There is no gross evidence of abdominal lymphadenopathy. There is no free fluid or free air. The stomach grossly appears unremarkable. The small and large bowel loops demonstrate normal caliber. There are scattered diverticula in the colon without evidence of acute diverticulitis. The abdominal aorta and IVC appear within normal limits. The bladder appears unremarkable for the degree of distention. Pelvic organ appears within normal limits. There is no gross evidence of a pelvic mass. There is no free fluid collection. Lung bases are clear. There is no acute osseous abnormality. There are spondylotic changes in the lumbar spine. IMPRESSION: 1. There is no acute process in the abdomen and pelvis. There is no evidence of nephrolithiasis or hydronephrosis. HS:Y ATED BY: RYAN FRANZ MD DICTATED DATE/TIME: 06/22/24 102 SIGNED BY: RYAN FRANZ MD SIGNED DATE/TIME: 06/22/24 102 CC: X-Ray, Labs, Meds, VS Comment EXTERNAL NOTES: NONE LABS ORDERED: CBC, CMP, UA REVIEWED AND INTERPRETED RESULTS: NORMAL IMAGING ORDERED: CT ABD/PEL, US ABDOMEN INDEPENDENT HISTORIANS: NONE TREATMENTS ORDERED: NS 1L IV, ROCEPHIN 1G IV, TORADOL 15MG IV PATIENT'S CASE AND RESULTS HAVE BEEN DISCUSSED WITH THE ED ATTENDING PHYSICIAN AND THEY AGREE WITH MY PLAN OF CARE. UPON MY PHYSICAL EXAMINATION THE PATIENT HAD NO GUARDING OR REBOUND TENDERNESS NOTED UPON PALPATION TO HER RIGHT UPPER QUADRANT, PATIENT HAD NO CVA TENDERNESS NOTED UPON PALPATION. MY DIFFERENTIAL DIAGNOSIS INCLUDES KIDNEY STONE, BILIARY SLUDGE, BILIARY COLIC, CHOLECYSTITIS, CHOLELITHIASIS, PANCREATITIS, MUSCLE STRAIN, CONSTIPATION. A CT SCAN WAS ORDERED NO ACUTE FINDINGS. PATIENT'S [facility] PH[facility] ORDERED AN ULTRASOUND OF HER ABDOMEN EARLIER TODAY WHICH REVEALED BILIARY SLUDGE AND POSSIBLE TINY GALLSTONES. HOWEVER BINDING CEMENTER FRENCH CORD NOTED THE PATIENT WAS HANLEY SIGN POSITIVE RAISING CONCERN FOR POSSIBLE ACUTE CHOLECYSTITIS. PRIMARY CARE PHYSICIAN RECOMMENDED THAT SHE BE ADMITTED FOR POSSIBLE ACUTE CHOLECYSTITIS. PATIENT WILL BE ADMITTED FOR FURTHER TREATMENT AND EVALUATION. Images Reviewed?: Images reviewed and evaluated by me Time of 1ST Reevaluation: 13:00 Reevaluation 1ST: Unchanged Patient Education/Counseling: Diagnosis, Treatment, Need For Follow Up Family Education/Counseling: Diagnosis, Treatment, Need For Follow Up Departure 1 Departure Time of Disposition: 13:00 Impression: Primary Impression: Cholecystitis with cholelithiasis Qualified Codes: K80.00 - Calculus of gallbladder with acute cholecystitis without obstruction Disposition: 09 ADMITTED INPATIENT Condition: Serious Critical Care Note Critical Care Time?: No Stability Stability form required: No Unstable for transfer: Requires medication, ED Physician Assesment, Possible rapid decline Heart Score Heart Score: Heart Score Response (Comments) Value History N/A 0 EKG N/A 0 Age N/A 0 Risk Factors N/A 0 Troponin N/A 0 Total 0 I personally scribed for MALLIKA POLLOCK ([email or web address]) on 06/22/24 at 09:49. Electronically submitted by Norberto Goldstein ([employer]). I personally scribed for MALLIKA POLLOCK ([email or web address]) on 06/22/24 at 10:29. Electronically submitted by Norberto Goldstein ([employer]). I personally scribed for MALLIKA POLLOCK ([email or web address]) on 06/22/24 at 11:52. Electronically submitted by Norberto Goldstein ([employer]). MALLIKA POLLOCK Jun 22, 2024 09:49
--- NOTE | 2024-06-22 10:23 | DVH ---
CT ABDOMEN AND PELVIS WITHOUT CONTRAST CLINICAL HISTORY: RIGHT FLANK PAIN, HX OF KIDNEY STONE TECHNIQUE: Multiple contiguous axial images of the abdomen and pelvis without intravenous contrast. The images were reformatted degenerate coronal and sagittal reconstructions. All CT scans at this medical facility are performed using dose modulation techniques as appropriate t o a performed exam including the following:Automated exposure control was utilized; adjustment of the MA and/or KV according to patient size; and use of iterative reconstruction technique. Radiation Dose Information: CT Dose: CTDI volume is 25 mGy. Dose-length product is 1182 mGy*cm Comparison: None FINDINGS: Evaluation of the abdomen and pelvis is limited without intravenous contrast. There is no evidence of a radiopaque renal calculus. There is no hydronephrosis. There is no evidenc e of a ureteral calculus or hydroureter. The liver, gallbladder, pancreas, adrenal glands, and spleen appear within normal limits. There is no gross evidence of abdominal lymphadenopathy. There is no free fluid or free air. The stomach grossly appears unremarkable. The small and large bowel loops demonstrate normal caliber . There are scattered diverticula in the colon without evidence of acute diverticulitis. The abdominal aorta and IVC appear within normal limits. The bladder appears unremarkable for the degree of distention. Pelvic organ appears within normal centeno its. There is no gross evidence of a pelvic mass. There is no free fluid collection. Lung bases are clear. There is no acute osseous abnormality. There are spondylotic changes in the lumbar spine. IMPRESSION: 1. There is no acute process in the abdomen and pelvis. There is no evidence of nephrolithiasis or h ydronephrosis. HS:Y
[2024-06-22 11:03] LABS: Basophils # (auto) 0 10 ^3/uL (0-0.2); Basophils % (auto) 0.2 % (0.0-2.0); Eosinophils # (auto) 0.1 10 ^3/uL (0-0.8); Lymphocytes # (auto) 2.2 10 ^3/uL (0.4-5.4); Monocytes # (auto) 0.7 10 ^3/uL (0-1.3)
[2024-06-22 11:06] LABS: Eosinophils % (auto) 0.9 % (0.0-7.0); Hematocrit 37.1 % (36.0-46.0); Hemoglobin 11.7 g/dL (12.2-16.2); Lymphocytes % (auto) 24.5 % (10.0-50.0); Mean Corpuscular Hemoglobin 21.8 pg (28.0-32.0); Mean Corpuscular Hgb Conc. 31.6 g/dL (32.0-36.0); Monocytes % (auto) 7.6 % (0.0-12.0); Neutrophils % (auto) 66.8 % (37.0-80.0); Platelet Count (auto) 277 10^3/uL (140-450); Red Blood Cells 5.38 10^6/uL (4.0-5.20); Red Cell Distribution Width 16.4 % (11.8-14.3)
[2024-06-22 11:11] LABS: Alanine Aminotransferase 10 U/L (7-40)
[2024-06-22 11:12] LABS: Albumin 4.1 g/dL (3.2-4.8); Anion Gap 6 (5-15); BUN/Creatinine Ratio 19.8 (10.0-20.0); Bilirubin, Total 0.9 mg/dL (0.2-1.0); Blood Urea Nitrogen 16 mg/dL (9-23); Calcium 9.6 mg/dL (8.7-10.4); Carbon Dioxide 30 mmol/L (20-31); Chloride 102 mmol/L (98-107); Potassium 4.1 mmol/L (3.5-5.1); Sodium 138 mmol/L (136-145); Total Protein 7.1 g/dL (5.7-8.2)
[2024-06-22 11:15] LABS: Alkaline Phosphatase 130 U/L (46-116); Aspartate Aminotransferase 9 U/L (13-40); Glucose 124 mg/dL (74-106)
[2024-06-22] MEDS ORDERED: KETOROLAC TROMETH 60MG/2ML VIAL IM ONE (11:30)
[2024-06-22 11:50] LABS: Anisocytosis Slight; Hypochromia Slight
[2024-06-22 11:50] LABS: Urine Bacteria None Seen /hpf (None Seen)
[2024-06-22 11:51] LABS: Platelet Estimate Adequate
[2024-06-22 12:05] LABS: Urine Blood Negative /uL (Negative); Urine Clarity Clear (Clear); Urine Color Light-Yellow (Yellow); Urine Protein, UAD Negative (Negative); Urine Specific Gravity 1.015 (1.001-1.035); Urine Urobilinogen Normal (Negative); Urine WBC 2 /hpf (0 - 5); Urine pH 5.5 (5.0-9.0)
[2024-06-22] MEDS: SODIUM CHLORIDE 0.9% 1,000 ML IV ONE (12:11)
[2024-06-22] MEDS ORDERED: DOCUSATE SOD 100 MG CAP PO PRN (13:30)
[2024-06-22] MEDS ORDERED: ACETAMINOPHEN 325 MG TAB PO PRN (13:30)
[2024-06-22] MEDS ORDERED: HYDROcodone-ACET 5/325MG TAB PO PRN (13:30)
[2024-06-22] MEDS ORDERED: ONDANSETRON HCL 4 MG/2 ML VIAL IV PRN (13:30)
[2024-06-22] MEDS ORDERED: ERGO1CAP12 PO (13:36)
[2024-06-22] MEDS ORDERED: HYDR25TA5 PO (13:36)
[2024-06-22] MEDS ORDERED: METO1TAB9 PO (13:36)
[2024-06-22] MEDS ORDERED: NIFE90TA75 PO (13:36)
[2024-06-22] MEDS ORDERED: METF-372 PO (13:36)
[2024-06-22] MEDS ORDERED: LISI40TA16 PO (13:36)
--- NOTE | 2024-06-22 13:48 | DVHHP2 ---
History of Present Illness Reason for Visit: Abdominal pain History of Present Illness Asia Fatima is a 64-year-old female with past medical history of diabetes, hypertension, and hyperlipidemia, who came in due to abdominal pain. Patient states the pain started this morning, it was worsening causing her to go see her primary care provider. An ultrasound of the gallbladder was completed showing cholecystitis possible gallstones. Patient was then sent to the ER for a surgical evaluation. Cardiovascular: HTN, hyperipidemia Endocrine: Diabetes Past Surgical History: Other (right knee arthoscopy) Smoke: No ALCOHOL: none Drugs: None Lives: with Family Domestic Violence: Neg Review of Systems Constitutional: No: Fever, Chills, Sweats, Weakness, Malaise, Other Eyes: No: Pain, Vision change, Conjunctivae inflammation, Eyelid inflammation, Other, Redness ENT: No: Ear pain, Ear discharge, Nose pain, Nose discharge, Nose congestion, Mouth pain, Mouth swelling, Throat pain, Throat swelling, Other Respiratory: No: Cough, Dry, Shortness of breath, SOB with excertion, Wheezing, Hemoptysis, Pleuritic Pain, Sputum, Wheezing, Other Cardiovascular: No: Chest Pain, Palpitations, Orthopnea, Paroxysmal Noc. Dyspnea, Edema, Lt Headedness, Other Gastrointestinal: Abdominal Pain (right and left upper quadrant pain); No: Nausea, Vomiting, Diarrhea, Constipation, Melena, Hematochezia, Other Genitourinary: No Dysuria, No Frequency, No Incontinence, No Hematuria, No Retention, No Other Musculoskeletal: No: other, neck pain, shoulder pain, arm pain, back pain, hand pain, leg pain, foot pain Skin: No: Rash, Lesions, Jaundice, Bruising, Other Neurological: No: Weakness, Numbness, Incoordination, Change in speech, Confusion, Seizures, Other Allergies: Coded Allergies: Gabapentin (Verified Allergy, Unknown, 04/06/23) Exam Vital Signs Vital Signs Date Time Temp Pulse Resp B/P (MAP) Pulse Ox O2 Delivery O2 Flow Rate FiO2 06/22/24 12:38 74 17 139/78 (98) 98 06/22/24 10:00 Room Air 06/22/24 10:00 97.9 97.9 General Appearance: Alert, Oriented X3, Cooperative, mild distress HEENT: Atraumatic, PERRLA Respiratory: Clear to auscultation, Normal air movement Cardiovascular: Regular rate, Normal S1, Normal S2 Abdominal: Normal bowel sounds, Soft, Other (C/O right and left upper quadrant pain) Extremities: No clubbing, No cyanosis, No edema, Normal pulses Skin: No rashes, No breakdown, No significant lesion Neuro: Normal gait, Normal speech, Strength at 5/5 X4 ext Psych/Mental Status: Mental status NL, Mood NL Labs/Xrays Labs Test 06/22/24 11:32 06/22/24 10:30 Range/Units Urine Color Light-yellow Yellow Urine Clarity Clear Clear Urine pH 5.5 5.0-9.0 Urine Specific [place] 1.015 1.001-1.035 Urine Protein Negative Negative Urine Ketones Negative Negative Urine Blood Negative Negative /uL Urine Nitrite Negative Negative Urine Bilirubin Negative Negative Urine Urobilinogen Normal Negative mg/dL Urine Leukocyte Esterase Negative Negative /uL Urine RBC <1 0 - 4 /hpf Urine WBC 2 0 - 5 /hpf Urine Squamous Epithelial Cells Few <5 /hpf Urine Bacteria None seen None Seen /hpf Urine Glucose Normal Normal mg/dL White Blood Count 9.0 4.4-10.8 10^3/uL Red Blood Count 5.38 H 4.0-5.20 10^6/uL Hemoglobin 11.7 L 12.2-16.2 g/dL Hematocrit 37.1 36.0-46.0 % Mean Corpuscular Volume 69.0 L 80.0-100.0 fL Mean Corpuscular Hemoglobin 21.8 L 28.0-32.0 pg Mean Corpuscular Hemoglobin Concent 31.6 L 32.0-36.0 g/dL Red Cell Distribution Width 16.4 H 11.8-14.3 % Platelet Count 277 140-450 10^3/uL Mean Platelet Volume 8.0 6.9-10.8 fL Neutrophils (%) (Auto) 66.8 37.0-80.0 % Lymphocytes (%) (Auto) 24.5 10.0-50.0 % Monocytes (%) (Auto) 7.6 0.0-12.0 % Eosinophils (%) (Auto) 0.9 0.0-7.0 % Basophils (%) (Auto) 0.2 0.0-2.0 % Neutrophils # (Auto) 6.0 1.6-8.6 10 ^3/uL Lymphocytes # (Auto) 2.2 0.4-5.4 10 ^3/uL Monocytes # (Auto) 0.7 0-1.3 10 ^3/uL Eosinophils # (Auto) 0.1 0-0.8 10 ^3/uL Basophils # (Auto) 0 0-0.2 10 ^3/uL Nucleated Red Blood Cells 0.0 % Platelet Estimate Adequate Hypochromasia (manual) Slight Anisocytosis (manual) Slight Microcytosis Slight Sodium Level 138 136-145 mmol/L Potassium Level 4.1 3.5-5.1 mmol/L Chloride Level 102 98-107 mmol/L Carbon Dioxide Level 30 20-31 mmol/L Anion Gap 6 5-15 Blood Urea Nitrogen 16 9-23 mg/dL Creatinine 0.81 0.550-1.02 mg/dL Glomerular Filtration Rate Calc 80 >90 mL/min BUN/Creatinine Ratio 19.8 10.0-20.0 Serum Glucose 124 H 74-106 mg/dL Calcium Level 9.6 8.7-10.4 mg/dL Total Bilirubin 0.9 0.2-1.0 mg/dL Aspartate Amino Transferase (AST) 9 L 13-40 U/L Alanine Aminotransferase (ALT) 10 7-40 U/L Alkaline Phosphatase 130 H 46-116 U/L Total Protein 7.1 5.7-8.2 g/dL Albumin 4.1 3.2-4.8 g/dL TECHNIQUE: Multiple real-time sonographic images of the abdomen were obtained. FINDINGS: The liver is homogenous in echogenicity. The liver measures 14.4 cm. No intrahepatic biliary ductal dilatation is noted. Hepatopetal flow in the main portal vein. The gallbladder wall measures 0.3 cm and is slightly thickened. There is ga llbladder sludge. On some of the dynamic images, there are small echogenic foci. Tiny gallstones not excluded. The common duct measures 0.6 cm. No pericholecystic fluid is noted. Positive sonographic Raman's sign. The right kidney measures 11.5 cm. No hydronephrosis. Increased echotexture of the right kidney. The pancreas is not well visualized due to obscuration from bowel gas. The visualized portions of the IVC and aorta are grossly unremarkable. IMPRESSION: 1. Gallbladder sludge and mild gallbladder wall thickening. Possible small gallstones. Positive sonographic raman's sign present. Constellation of findings raise concern for acute cholecystitis in the appropriate clinical setting. 2. Increased echotexture of the right kidney which may suggest medical renal disease. CT ABDOMEN AND PELVIS WITHOUT CONTRAST FINDINGS: Evaluation of the abdomen and pelvis is limited without intravenous contrast. There is no evidence of a radiopaque renal calculus. There is no hydronephrosis. There is no evidence of a ureteral calculus or hydroureter. The liver, gallbladder, pancreas, adrenal glands, and spleen appear within normal limits. There is no gross evidence of abdominal lymphadenopathy. There is no free fluid or free air. The stomach grossly appears unremarkable. The small and large bowel loops demonstrate normal caliber. There are scattered diverticula in the colon without evidence of acute diverticulitis. The abdominal aorta and IVC appear within normal limits. The bladder appears unremarkable for the degree of distention. Pelvic organ appears within normal limits. There is no gross evidence of a pelvic mass. There is no free fluid collection. Lung bases are clear. There is no acute osseous abnormality. There are spondylotic changes in the lumbar spine. IMPRESSION: 1. There is no acute process in the abdomen and pelvis. There is no evidence of nephrolithiasis or hydronephrosis. Assessment/Plan Assessment/Plan Assessment: Acute cholecystitis, Possible chololithiasis, Diabetes, Hypertension, Hyperlipidemia, Plan: Admit to Med-Surg, Surgical consult, HIDA scan, PT/PTT, Antiemetics, Pain management, Home medications reconciled, Plan discussed with: Patient My Orders Orders - JESUS MALAGON Procedure Category Date Status Time Nm Hida Scan NM 06/22/24 Verified 13:28 Admit ADMIT 06/22/24 Verified 13:28 Code Status CODE 06/22/24 Verified 13:28 2 Gm Sodium Diet DIET 06/22/24 Verified Lunch Sodium Chloride Lock PHA 06/22/24 Verified (Saline Lock Ns) 14:00 Hydrocodone-Acet PHA 06/22/24 Verified 5/325mg Tab ([place] 13:30 Ondansetron Hcl PHA 06/22/24 Verified (Zofran) 13:30 Docusate Sodium PHA 06/22/24 Verified Capsule (Colace 13:30 Complete Blood Count LAB 06/23/24 Verified 04:00 Comprehensive LAB 06/23/24 Verified Metabolic Panel 04:00 Condition: Serious MIHIR 06/22/24 Verified 13:28 Acetaminophen Tablet PHA 06/22/24 Verified (Tylenol Tablet) 13:30 Morphine Sulfate PHA 06/22/24 Verified Injection 13:30 * Surgical Consult CONS 06/22/24 Verified PTPTT LAB 06/22/24 Verified 13:28 Date of Service: Jun 22, 2024 Billing Provider: JESUS MALAGON Common Visit Codes: [id number] INP/OBS CARE (MOD) JESUS MALAGON Jun 22, 2024 13:48
[2024-06-22] MEDS ORDERED: DEXTROSE (50%) 50ML SYRG IV PRN (15:30)
[2024-06-22] MEDS: MORPHINE SULFATE INJ 2 MG/ml SYRG IV PRN (15:43)
[2024-06-22] MEDS: KETOROLAC TROMETH 30 MG/ML 1ML VIAL IV ONE (16:03)
[2024-06-22] MEDS: cefTRIAXone 1GM/50ML D5W 50 ML IV ONE (16:04)
[2024-06-22] MEDS: SODIUM CHLOR 0.9% PF (SALINE LOCK) 10ML VIAL/SYR IV SCH (16:04)
[2024-06-22 16:14] VITALS: PULSE 84; RESP 16; O2SAT 97
--- NOTE | 2024-06-22 16:46 | DVH ---
EXAM: NM NM HIDA SCAN History: gallstones Comparison Study: None available TECHNIQUE: Following intravenous administration of 5.2 mCi of Tc-99m mebrofenin (Choletec), dynamic sequential images of the right upper abdomen were acquired for 60 minutes. An additional planar image in the lateral right upper quadrant was also obtained. After the intravenous administration of 2 mg of morphine sulfate, additional dynamic images were acqu ired for 30 minutes. FINDINGS: The liver demonstrates prompt radiotracer uptake with clearance from blood pool. No focal perfusion d efects were noted. There was prompt excretion of the radiotracer into the biliary tree, without evide nce of biliary dilatation or obstruction. There is reflux of radiotracer into the stomach. Following administration of morphine, there was no filling of the gallbladder. IMPRESSION: 1. Nonvisualized gallbladder, consistent with acute cholecystitis.
[2024-06-22] MEDS: InsuLIN REG 1unit/0.01ml Soln (100units/ml) SC SCH ×2 (17:00→22:00)
[2024-06-22] MEDS: ACCU-CHEK COMFORT CURVE STRIP VI SCH (17:09)
[2024-06-22 17:20] LABS: INR 1.1 (0.9-1.15); Partial Thromboplastin Time 27.3 SEC (24.5-34.5); Prothrombin Time 11.6 sec (9.3-11.8)
[2024-06-22 20:40] VITALS: PULSE 78; RESP 18; O2SAT 99
--- NOTE | 2024-06-22 20:46 | DVHINCON2 ---
Consultation - Surgical Date Seen: Jun 22, 2024 Referring Physician Reason for Consultation cholecystitis History of Present Illness History of Present Illness 64 year old female presented to the ER for evaluation of abdominal pain. Patient states her pain started about 9am today and went to see her primary care provider. She states her pain started epigastric with radiation to her back. The pain . Patient states she has never had abdominal pain like this before. Past Medical/Surgical History Past Medical/Surgical History Cardiovascular: HTN, hyperlipidemia Endocrine: Diabetes Past Surgical History: right knee arthroscopy Family and Social History Family and Social History Smoke: No ALCOHOL: none Drugs: None Lives: with Family Domestic Violence: Neg Allergies and medications Allergies: Coded Allergies: Gabapentin (Verified Allergy, Unknown, 04/06/23) Home Meds Active Scripts Clobetasol Propionate (Clobetasol Propionate) 0.05 % Oin, 1 APPLIC TOP BID, #60 GRAMS 1 Refill Prov:MALLIKA POLLOCK 04/12/24 Meclizine HCl (Meclizine 25) 25 Mg Tab, 25 MG PO BID, #30 TAB Prov:MALLIKA POLLOCK 12/23/23 Potassium Chloride (Klor-Con M10) 10 Meq Tab, 1 TAB PO DAILY, #30 TAB 1 Refill Prov:MALLIKA POLLOCK 03/18/23 Reported Medications Ergocalciferol (Vitamin D) 50,000 Unit Cap, 1 CAP PO QWEEKLY 06/22/24 Metoprolol Succinate (Metoprolol Succinate Er) 100 Mg Tab, 1 TAB PO DAILY 06/22/24 Hctz (Hydrochlorothiazide) 25 Mg Tab, 1 TAB PO DAILY 06/22/24 Lisinopril (Lisinopril) 40 Mg Tab, 1 TAB PO DAILY 06/22/24 Nifedipine (Nifedipine Er) 90 Mg Tab, 1 TAB PO DAILY 06/22/24 Metformin Hydrochloride (Metformin Hcl) 1,000 Mg Tab, 1 TAB PO BID 06/22/24 Discontinued Scripts Scopolamine (Transderm-Scop) 1 Mg/3 Days Dis, 1 MG TD DAILY PRN for 3 Days, #3 PATCH 1 Refill Prov:MALLIKA POLLOCK 01/06/24 Ibuprofen Micronized (MOTRIN TABLET) 600 Mg Tb, 600 MG PO TID PRN for 5 Days, #15 TAB *Black box warning-NSAIDS can increase risk of CO & hypertension, GI irritation, ulceration, bleed, perferation. Do not use post cardiac surgery. Use short duration/lowest effective dose. Prov:KHANH CUNHA MD 12/29/23 Lidocaine (Lidocaine Patch 5%) 5 % Pad, 5 % EX DAILY, #30 PAD 1 Refill Prov:MALLIKA POLLOCK 10/22/23 Acetaminophen (Tylenol 8 Hour Arthritis) 650 Mg Tab, 650 MG PO BID, #60 TAB Prov:MALLIKA POLLOCK 04/22/23 Ibuprofen Micronized (Ibuprofen) 400 Mg Tab, 1 TAB PO Q8HR, #10 TAB as needed for pain Prov:JOHN DUGAN TAKE UP SUPERVISOR 04/06/23 Ibuprofen (Ibuprofen) 800 Mg Tab, 1 TAB PO TID, #60 TAB Prov:MALLIKA POLLOCK 10/23/22 Benzonatate (Tessalon Perles) 100 Mg Cap, 200 MG PO TID, #30 CAP Prov:MALLIKA POLLOCK 09/01/22 Lisinopril (Lisinopril) 20 Mg Tab, 20 MG PO BID PRN, #40 TAB Prov:MALLIKA POLLOCK 06/18/22 Review of systems Review of Systems: HEENT:Normal, CVS:Normal, RESPIRATORY:Normal, GI:Normal, :Normal, MSK:Normal, NEURO:Normal Examination Vital signs Vital Signs Date Time Temp Pulse Resp B/P (MAP) Pulse Ox O2 Delivery O2 Flow Rate FiO2 06/22/24 17:09 76 15 125/73 06/22/24 16:20 98.2 97 98.2 06/22/24 16:14 Room Air* 0 21 Medications Current Medications Medications (Trade) Dose Ordered Sig/Garth Route PRN Reason Start Time Stop Time Status Last Admin Sodium Chloride (Saline Lock Ns) 10 ml Q8HR IV 06/22/24 14:00 06/22/24 16:04 Acetaminophen/ Hydrocodone Bitart ([place] 5/325MG Tab) 1 tab Q4HP PRN PO MODERATE PAIN (4-6 PAIN SCALE) 06/22/24 13:30 Ondansetron HCl (Zofran) 4 mg Q4HP PRN IV NAUSEA / VOMITING 06/22/24 13:30 Docusate Sodium (Colace Capsule) 100 mg BIDPRN PRN PO FOR CONSTIPATION 06/22/24 13:30 Acetaminophen (Tylenol Tablet) 650 mg Q6HP PRN PO PAIN SCALE 1-3 OR TEMP>100.4 06/22/24 13:30 Morphine Sulfate 2 mg Q4HPRN PRN IV SEVERE PAIN (7-10 PAIN SCALE) 06/22/24 13:30 06/22/24 15:43 Diagnostic Test (Pha) (Accu-Chek Comfort Curve T) 1 strip ACHS 06/22/24 17:00 06/22/24 17:09 Insulin Human Regular (InsuLIN R) HS SC 06/22/24 22:00 Insulin Human Regular (InsuLIN R) AC SC 06/22/24 17:00 Dextrose 50 ml UD PRN IV Blood Sugar LESS THAN 60 06/22/24 15:30 Laboratory Labs Test 06/22/24 17:08 06/22/24 16:40 06/22/24 11:32 06/22/24 10:30 Range/Units POC Glucose 110 H 70-106 mg/dl Prothrombin Time 11.6 9.3-11.8 sec Prothrombin Time INR 1.10 0.9-1.15 Activated Partial Thromboplast Time 27.3 24.5-34.5 SEC Urine Color Light-yellow Yellow Urine Clarity Clear Clear Urine pH 5.5 5.0-9.0 Urine Specific [place] 1.015 1.001-1.035 Urine Protein Negative Negative Urine Ketones Negative Negative Urine Blood Negative Negative /uL Urine Nitrite Negative Negative Urine Bilirubin Negative Negative Urine Urobilinogen Normal Negative mg/dL Urine Leukocyte Esterase Negative Negative /uL Urine RBC <1 0 - 4 /hpf Urine WBC 2 0 - 5 /hpf Urine Squamous Epithelial Cells Few <5 /hpf Urine Bacteria None seen None Seen /hpf Urine Glucose Normal Normal mg/dL White Blood Count 9.0 4.4-10.8 10^3/uL Red Blood Count 5.38 H 4.0-5.20 10^6/uL Hemoglobin 11.7 L 12.2-16.2 g/dL Hematocrit 37.1 36.0-46.0 % Mean Corpuscular Volume 69.0 L 80.0-100.0 fL Mean Corpuscular Hemoglobin 21.8 L 28.0-32.0 pg Mean Corpuscular Hemoglobin Concent 31.6 L 32.0-36.0 g/dL Red Cell Distribution Width 16.4 H 11.8-14.3 % Platelet Count 277 140-450 10^3/uL Mean Platelet Volume 8.0 6.9-10.8 fL Neutrophils (%) (Auto) 66.8 37.0-80.0 % Lymphocytes (%) (Auto) 24.5 10.0-50.0 % Monocytes (%) (Auto) 7.6 0.0-12.0 % Eosinophils (%) (Auto) 0.9 0.0-7.0 % Basophils (%) (Auto) 0.2 0.0-2.0 % Neutrophils # (Auto) 6.0 1.6-8.6 10 ^3/uL Lymphocytes # (Auto) 2.2 0.4-5.4 10 ^3/uL Monocytes # (Auto) 0.7 0-1.3 10 ^3/uL Eosinophils # (Auto) 0.1 0-0.8 10 ^3/uL Basophils # (Auto) 0 0-0.2 10 ^3/uL Nucleated Red Blood Cells 0.0 % Platelet Estimate Adequate Hypochromasia (manual) Slight Anisocytosis (manual) Slight Microcytosis Slight Sodium Level 138 136-145 mmol/L Potassium Level 4.1 3.5-5.1 mmol/L Chloride Level 102 98-107 mmol/L Carbon Dioxide Level 30 20-31 mmol/L Anion Gap 6 5-15 Blood Urea Nitrogen 16 9-23 mg/dL Creatinine 0.81 0.550-1.02 mg/dL Glomerular Filtration Rate Calc 80 >90 mL/min BUN/Creatinine Ratio 19.8 10.0-20.0 Serum Glucose 124 H 74-106 mg/dL Calcium Level 9.6 8.7-10.4 mg/dL Total Bilirubin 0.9 0.2-1.0 mg/dL Aspartate Amino Transferase (AST) 9 L 13-40 U/L Alanine Aminotransferase (ALT) 10 7-40 U/L Alkaline Phosphatase 130 H 46-116 U/L Total Protein 7.1 5.7-8.2 g/dL Albumin 4.1 3.2-4.8 g/dL Examination: GENERAL:Normal (Alert, Oriented X3, Cooperative), HEENT:Normal (PERRLA), NECK:Normal (supple), LUNGS:Normal (clear), CVS:Normal (regular rate ), ABDOMEN:Normal (soft, non tender), MSK:Normal, SKIN:Normal (warm, dry), NEURO:Normal (normal speech) Problem List/Assessment/Plan Problems: (1) Cholecystitis with cholelithiasis Assessment and Plan labs, image reports reviewed , patient examined abdomen soft, non distended, non tender patient states the pain she was experiencing this morning is gone now. Patient does not want to proceed with surgery at this time and would prefer to have the operation as outpatient and would like to go home. Education provided to patient on the risk of the pain returning and recommend she avoid certain foods that may cause further symptoms. After education was provided and all questions answered patient would rather wait on surgery. Case discussed with Dr. Trinh and no surgical intervention at this time. Plan discussed with Plan discussed with: Patient, Other (Dr. Trinh) Visit Coding Surgery Date of Service if different f: Jun 22, 2024 Billing Provider: BOB TRINH MD Surgery Visit Codes: 52578 - INP CONSULT <80 MIN HUNTER MCKEON TAKE UP SUPERVISOR Jun 22, 2024 20:46
[2024-06-23] VITALS (7 sets, daily range): BP systolic 127–142; BP diastolic 64–83; PULSE 65–80; RESP 16–19; TEMP 97.7–98; O2SAT 97–98
--- NOTE | 2024-06-23 06:22 | DVHPN2 ---
Subjective No more abdominal pain Reviewed: Care Plan, H&P, Labs, Medications, Previous Orders, Radiology, Other (Consultation) Changes from previous H/P or p: Changes Objective Vitals Vital Signs Date Time Temp Pulse Resp B/P (MAP) Pulse Ox O2 Delivery O2 Flow Rate FiO2 06/23/24 05:48 97.9 76 18 142/64 (90) 97 97.9 06/22/24 20:40 Room Air* 0 21 General Appearance: Alert, Oriented X3, Cooperative, No acute distress HEENT: Atraumatic Lungs: Clear to auscultation, Normal air movement Cardiovascular: Regular rate, Normal S1, Normal S2, No murmurs Abdomen: Normal bowel sounds, Soft, No tenderness, No hepatospenomegaly Neuro: Normal speech, Cranial nerves 3-12 NL Psych/Mental Status: Mental status NL Medications Current Medications Medications Dose Ordered Sig/Garth Route Start Time Stop Time Status Last Admin Dose Admin Sodium Chloride 10 ml Q8HR IV 06/22/24 14:00 06/23/24 05:56 10 ML Acetaminophen/ Hydrocodone Bitart 1 tab Q4HP PRN PO 06/22/24 13:30 Ondansetron HCl 4 mg Q4HP PRN IV 06/22/24 13:30 Docusate Sodium 100 mg BIDPRN PRN PO 06/22/24 13:30 Acetaminophen 650 mg Q6HP PRN PO 06/22/24 13:30 Morphine Sulfate 2 mg Q4HPRN PRN IV 06/22/24 13:30 06/22/24 15:43 2 MG Diagnostic Test (Pha) 1 strip ACHS 06/22/24 17:00 06/23/24 05:56 1 STRIP Insulin Human Regular HS SC 06/22/24 22:00 Insulin Human Regular AC SC 06/22/24 17:00 Dextrose 50 ml UD PRN IV 06/22/24 15:30 Laboratory Results Laboratory Tests 06/22/24 10:30 Chemistry Test 06/22/24 10:30 Albumin 4.1 g/dL (3.2-4.8) Calcium Level 9.6 mg/dL (8.7-10.4) Total Protein 7.1 g/dL (5.7-8.2) Coagulation Test 06/22/24 16:40 Prothrombin Time 11.6 sec (9.3-11.8) Prothrombin Time INR 1.10 (0.9-1.15) Activated Partial Thromboplast Time 27.3 SEC (24.5-34.5) LFT Test 06/22/24 10:30 Alanine Aminotransferase (ALT) 10 U/L (7-40) Alkaline Phosphatase 130 U/L (46-116) H Aspartate Amino Transferase (AST) 9 U/L (13-40) L Total Bilirubin 0.9 mg/dL (0.2-1.0) Urinalysis Test 06/22/24 11:32 Urine Color Light-yellow (Yellow) Urine Clarity Clear (Clear) Urine pH 5.5 (5.0-9.0) Urine Specific [place] 1.015 (1.001-1.035) Urine Protein Negative (Negative) Urine Ketones Negative (Negative) Urine Blood Negative /uL (Negative) Urine Nitrite Negative (Negative) Urine Bilirubin Negative (Negative) Urine Urobilinogen Normal mg/dL (Negative) Urine Leukocyte Esterase Negative /uL (Negative) Urine RBC <1 /hpf (0 - 4) Urine WBC 2 /hpf (0 - 5) Urine Squamous Epithelial Cells Few /hpf (<5) Urine Bacteria None seen /hpf (None Seen) Urine Glucose Normal mg/dL (Normal) Labs and/or images reviewed: Labs reviewed by me, Image(s) reviewed by me Assessment/Plan Assessment/Plan A 64-year-old female patient; with multiple comorbidities; who presented to the emergency department with acute right upper quadrant abdominal pain. #Acute right upper quadrant abdominal pain due to acute cholecystitis; reviewed available imaging including abdominal/pelvic CT, right upper quadrant ultrasound, and HIDA scan; received IV antibiotics; evaluated by surgery and declined surgical intervention at this time; the abdominal pain resolved; will be discharged home on oral antibiotics; and will be seen in the discharge clinic on Tuesday June 25, 2024 at 8:[address] 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 Villagomez the primary care provider of the patient at the discharge clinic on Tuesday at 8:00 a.m. Obesity with metabolic syndrome; counseled the patient on the importance of adopting healthy lifestyle with diet and exercise in order to lose weight; to follow up with Dr. Villagomez the primary care provider of the patient at the discharge clinic on Tuesday at 8:00 a.m. Goals of care discussion for 20 minutes; full code. Late Entry. This medical document was created using an electronic medical record system with computerized dictation system. Although this document has been carefully reviewed, there might still be some phonetic and typographical errors. These areas are purely typographical due to imperfections of the software programs, and do not reflect any compromise in the patient's medical care. Plan discussed with: Patient, Other (Nurse) My Orders Orders - ANGEL VILLAGOMEZ MD Procedure Category Date Status Time Ceftriaxone 1gm/50ml PHA 06/23/24 In Process D5w (Rocephin) 09:00 Date of Service: Jun 23, 2024 Billing Provider: ANGEL VILLAGOMEZ MD Common Visit Codes: [id number] INP/OBS CARE(HIGH) Secondary Visit Codes: [id number] CARE PLAN 30 MINUTES (20 minutes) ANGEL VILLAGOMEZ MD Jun 23, 2024 06:22
[2024-06-23 06:58] LABS: Basophils # (auto) 0 10 ^3/uL (0-0.2); Eosinophils # (auto) 0.1 10 ^3/uL (0-0.8); Lymphocytes # (auto) 2.1 10 ^3/uL (0.4-5.4); Neutrophils # (auto) 2.7 10 ^3/uL (1.6-8.6)
[2024-06-23 07:01] LABS: Basophils % (auto) 0.3 % (0.0-2.0); Eosinophils % (auto) 1.6 % (0.0-7.0); Hematocrit 34.4 % (36.0-46.0); Hemoglobin 10.9 g/dL (12.2-16.2); Lymphocytes % (auto) 38.2 % (10.0-50.0); Mean Corpuscular Hemoglobin 22.2 pg (28.0-32.0); Mean Corpuscular Hgb Conc. 31.8 g/dL (32.0-36.0); Mean Corpuscular Volume 69.8 fL (80.0-100.0); Monocytes # (auto) 0.6 10 ^3/uL (0-1.3); Monocytes % (auto) 11.6 % (0.0-12.0); Neutrophils % (auto) 48.3 % (37.0-80.0); Nucleated Red Blood Cells % 0.2 %; Platelet Count (auto) 233 10^3/uL (140-450); Red Blood Cells 4.92 10^6/uL (4.0-5.20); Red Cell Distribution Width 15.9 % (11.8-14.3); White Blood Cell 5.5 10^3/uL (4.4-10.8)
[2024-06-23 07:29] LABS: Alanine Aminotransferase 10 U/L (7-40); Anion Gap 7 (5-15); BUN/Creatinine Ratio 18.8 (10.0-20.0); Blood Urea Nitrogen 15 mg/dL (9-23); Calcium 9.4 mg/dL (8.7-10.4); Carbon Dioxide 30 mmol/L (20-31); Chloride 105 mmol/L (98-107); Potassium 4.3 mmol/L (3.5-5.1); Sodium 142 mmol/L (136-145)
[2024-06-23 07:30] LABS: Total Protein 6.6 g/dL (5.7-8.2)
[2024-06-23 07:36] LABS: Alkaline Phosphatase 118 U/L (46-116); Aspartate Aminotransferase 12 U/L (13-40); Glucose 111 mg/dL (74-106)
[2024-06-23] MEDS: cefTRIAXone 1GM/50ML D5W 50 ML IV ONE (08:46)
[2024-06-23] MEDS ORDERED: AUG875T PO (09:16)
--- NOTE | 2024-06-23 09:19 | DVHDS2 ---
Discharge Summary Date of Admission Jun 22, 2024 at 13:28 Date of Discharge: Jun 23, 2024 Admitting Diagnosis Acute right upper quadrant abdominal pain Labs/Diagnostic Data: Laboratory Results Test 06/23/24 05:47 06/23/24 05:33 06/22/24 16:40 06/22/24 11:32 POC Glucose 123 mg/dl (70-106) White Blood Count 5.5 10^3/uL (4.4-10.8) Red Blood Count 4.92 10^6/uL (4.0-5.20) Hemoglobin 10.9 g/dL (12.2-16.2) Hematocrit 34.4 % (36.0-46.0) Mean Corpuscular Volume 69.8 fL (80.0-100.0) Mean Corpuscular Hemoglobin 22.2 pg (28.0-32.0) Mean Corpuscular Hemoglobin Concent 31.8 g/dL (32.0-36.0) Red Cell Distribution Width 15.9 % (11.8-14.3) Platelet Count 233 10^3/uL (140-450) Mean Platelet Volume 7.9 fL (6.9-10.8) Neutrophils (%) (Auto) 48.3 % (37.0-80.0) Lymphocytes (%) (Auto) 38.2 % (10.0-50.0) Monocytes (%) (Auto) 11.6 % (0.0-12.0) Eosinophils (%) (Auto) 1.6 % (0.0-7.0) Basophils (%) (Auto) 0.3 % (0.0-2.0) Neutrophils # (Auto) 2.7 10 ^3/uL (1.6-8.6) Lymphocytes # (Auto) 2.1 10 ^3/uL (0.4-5.4) Monocytes # (Auto) 0.6 10 ^3/uL (0-1.3) Eosinophils # (Auto) 0.1 10 ^3/uL (0-0.8) Basophils # (Auto) 0 10 ^3/uL (0-0.2) Nucleated Red Blood Cells 0.2 % Sodium Level 142 mmol/L (136-145) Potassium Level 4.3 mmol/L (3.5-5.1) Chloride Level 105 mmol/L (98-107) Carbon Dioxide Level 30 mmol/L (20-31) Anion Gap 7 (5-15) Blood Urea Nitrogen 15 mg/dL (9-23) Creatinine 0.80 mg/dL (0.550-1.02) Glomerular Filtration Rate Calc 81 mL/min (>90) BUN/Creatinine Ratio 18.8 (10.0-20.0) Serum Glucose 111 mg/dL (74-106) Calcium Level 9.4 mg/dL (8.7-10.4) Total Bilirubin 1.0 mg/dL (0.2-1.0) Aspartate Amino Transferase (AST) 12 U/L (13-40) Alanine Aminotransferase (ALT) 10 U/L (7-40) Alkaline Phosphatase 118 U/L (46-116) Total Protein 6.6 g/dL (5.7-8.2) Albumin 4.0 g/dL (3.2-4.8) Prothrombin Time 11.6 sec (9.3-11.8) Prothrombin Time INR 1.10 (0.9-1.15) Activated Partial Thromboplast Time 27.3 SEC (24.5-34.5) Urine Color Light-yellow (Yellow) Urine Clarity Clear (Clear) Urine pH 5.5 (5.0-9.0) Urine Specific [place] 1.015 (1.001-1.035) Urine Protein Negative (Negative) Urine Ketones Negative (Negative) Urine Blood Negative /uL (Negative) Urine Nitrite Negative (Negative) Urine Bilirubin Negative (Negative) Urine Urobilinogen Normal mg/dL (Negative) Urine Leukocyte Esterase Negative /uL (Negative) Urine RBC <1 /hpf (0 - 4) Urine WBC 2 /hpf (0 - 5) Urine Squamous Epithelial Cells Few /hpf (<5) Urine Bacteria None seen /hpf (None Seen) Urine Glucose Normal mg/dL (Normal) Test 06/22/24 10:30 Platelet Estimate Adequate Hypochromasia (manual) Slight Anisocytosis (manual) Slight Microcytosis Slight Other Laboratory Tests 06/23/24 05:33 Brief Hx & Hospital Course: A 64-year-old female patient; with multiple comorbidities; who presented to the emergency department with acute right upper quadrant abdominal pain. Details as below: #Acute right upper quadrant abdominal pain due to acute cholecystitis; reviewed available imaging including abdominal/pelvic CT, right upper quadrant ultrasound, and HIDA scan; received IV antibiotics; evaluated by surgery and declined surgical intervention at this time; the abdominal pain resolved; will be discharged home on oral antibiotics; and will be seen in the discharge clinic on Tuesday June 25, 2024 at 8:[address] 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 Villagomez the primary care provider of the patient at the discharge clinic on Tuesday at 8:00 a.m. Obesity with metabolic syndrome; counseled the patient on the importance of adopting healthy lifestyle with diet and exercise in order to lose weight; to follow up with Dr. Villagomez the primary care provider of the patient at the discharge clinic on Tuesday at 8:00 a.m. Late Entry. This medical document was created using an electronic medical record system with computerized dictation system. Although this document has been carefully reviewed, there might still be some phonetic and typographical errors. These areas are purely typographical due to imperfections of the software programs, and do not reflect any compromise in the patient's medical care. Consults/Reason for consult Surgery for acute cholecystitis Condition at Discharge: Stable Final Diagnosis/Problems List Acute cholecystitis; declined surgical intervention Secondary Diagnosis: As above Discharge Disposition: Home Discharge Instruct/Medications Diet: Cardiac 2g Na,low cholest, See Comment Diet comment: Low-fat diet Activity: No Restrictions, As Tolerated Follow Up/Referral: To be seen by Dr. Villagomez in the continue with the [facility] [address] on June 25, 2024Tuesday morning at 8:00 a.m. Medications: Discharged on Augmentin; continue home medications Discharge Statement: "Patient was advised to return to the ER or call 911 if any headaches, dizziness, shortness of breath, chest pain, abdominal pain, bleeding, fevers, or worsening of medical condition. Patient was counseled about treatment plan, medications, possible side effects, patientverbalized understanding. All questions were answered to the best of my ability. This discharge took greater then 30 minutes in planning, reviewing documentation, counseling the patient, and discussing with other team members." ASSESSMENT ASSESSMENT Assessment Acute cholecystitis; declined surgical intervention Date of Service: Jun 23, 2024 Billing Provider: ANGEL VILLAGOMEZ MD Common Visit Codes: 69857-FJX/OBS DISCH DAY >30min ANGEL VILLAGOMEZ MD Jun 23, 2024 09:19
== END 2024-06-23 12:49 | disposition home or self-care (01) | DRG 446 ==
LOC: ER 09:18 → OVERFLOW 13:28 → EAST 19:55
PROVIDERS: ADMIT Nurse Practitioner Family; ATTEND Nurse Practitioner Family
DX: K80.00 Calculus of gallbladder with acute cholecystitis without obstruction (principal); E78.5 Hyperlipidemia, unspecified; E66.9 Obesity, unspecified; E88.810 Metabolic syndrome; I12.9 Hypertensive chronic kidney disease with stage 1 through stage 4 chronic kidney disease, or unspecified chronic kidney disease; E11.22 Type 2 diabetes mellitus with diabetic chronic kidney disease; N18.2 Chronic kidney disease, stage 2 (mild); Z68.32 Body mass index [BMI] 32.0-32.9, adult
CPT/HCPCS: 36415; 74176; 78226; 80053; 81001; 82962; 85025; 85610; 85730; 96361; 96365; 96375; G0378; J1815; J1885

== ENCOUNTER → 2024-11-12 | Outpatient (CLI) | payer BC ==
[~2024-11-12] MED LIST changes: -ACET-1080 PO; +AUG875T PO; -BENZ100C19 PO; -DICL1GEL59 EX; -DOCU-94 PO; +ERGO1CAP12 PO; -FURO1TAB31 PO; -HYDR-4902 PO; +HYDR25TA5 PO; -IBU600T PO; -IBUP1TAB4 PO; -LISI20TA56 PO; +LISI40TA16 PO; +METF-372 PO; -METH-1182 PO; +METO1TAB9 PO; +NIFE90TA75 PO
[2024-11-12 11:17] LABS: Basophils # (auto) 0 10 ^3/uL (0-0.2); Basophils % (auto) 0.6 % (0.0-2.0); Eosinophils # (auto) 0.1 10 ^3/uL (0-0.8); Hemoglobin 12.7 g/dL (12.2-16.2); Lymphocytes # (auto) 3.1 10 ^3/uL (0.4-5.4); Lymphocytes % (auto) 37.9 % (10.0-50.0); Mean Corpuscular Hgb Conc. 31.8 g/dL (32.0-36.0); Monocytes # (auto) 0.7 10 ^3/uL (0-1.3); Monocytes % (auto) 8.1 % (0.0-12.0); Neutrophils # (auto) 4.3 10 ^3/uL (1.6-8.6); Neutrophils % (auto) 52.4 % (37.0-80.0); Platelet Count (auto) 367 10^3/uL (140-450); Red Cell Distribution Width 15.8 % (11.8-14.3); White Blood Cell 8.3 10^3/uL (4.4-10.8)
[2024-11-12 12:01] LABS: Potassium 3.9 mmol/L (3.5-5.1)
[2024-11-12 12:03] LABS: Calcium 9.6 mg/dL (8.7-10.4)
[2024-11-12 12:04] LABS: Protein, Urine 14.3 mg/dL (1-14)
[2024-11-12 12:07] LABS: BUN/Creatinine Ratio 16.1 (10.0-20.0)
[2024-11-12 12:09] LABS: Albumin 4.7 g/dL (3.2-4.8)
[2024-11-12 12:10] LABS: Phosphorus 3.8 mg/dL (2.4-5.1)
[2024-11-12 12:15] LABS: Creatinine, Urine 255.13 mg/dL (30.0-125.0); Urine Protein/Creatinine Ratio 0.06
[2024-11-12 12:43] LABS: Uric Acid 6.9 mg/dL (3.1-7.8)
== END | disposition home or self-care (01) ==
LOC: LAB 10:48
PROVIDERS: ATTEND Internal Medicine
DX: E11.22 Type 2 diabetes mellitus with diabetic chronic kidney disease (principal); N18.30 Chronic kidney disease, stage 3 unspecified; E21.3 Hyperparathyroidism, unspecified; E56.9 Vitamin deficiency, unspecified; M10.9 Gout, unspecified; R80.9 Proteinuria, unspecified; D63.1 Anemia in chronic kidney disease
CPT/HCPCS: 36415; 80069; 82306; 82570; 83036; 83970; 84156; 84550; 85025

== ENCOUNTER → 2025-03-06 | Day surgery (SDC) | payer BC, MEDICARE ==
[2025-03-01 11:54] LABS: Hematocrit 38.9 % (36.0-46.0); Hemoglobin 12.5 g/dL (12.2-16.2); Mean Corpuscular Hemoglobin 22.3 pg (28.0-32.0); Mean Corpuscular Volume 69.5 fL (80.0-100.0)
[2025-03-01 12:07] LABS: INR 1.03 (0.9-1.15); Partial Thromboplastin Time 26.5 SEC (24.5-34.5); Prothrombin Time 10.9 sec (9.3-11.8)
[2025-03-01 12:10] LABS: Alanine Aminotransferase 10 U/L (7-40); Albumin 4.8 g/dL (3.2-4.8); Alkaline Phosphatase 124 U/L (46-116); Anion Gap 9 (5-15); BUN/Creatinine Ratio 11.3 (10.0-20.0); Bilirubin, Total 0.6 mg/dL (0.2-1.0); Blood Urea Nitrogen 9 mg/dL (9-23); Calcium 9.4 mg/dL (8.7-10.4); Carbon Dioxide 27 mmol/L (20-31); Chloride 107 mmol/L (98-107); Glucose 120 mg/dL (74-106); Potassium 3.5 mmol/L (3.5-5.1); Sodium 143 mmol/L (136-145); Total Protein 7.8 g/dL (5.7-8.2)
[2025-03-01 12:15] LABS: Urine Protein, UAD Negative (Negative)
[2025-03-01 12:39] LABS: Total Cells Counted 100.0 (100)
[~2025-03-06] VITALS: Ht 180.3 cm; Wt 113.9 kg
[~2025-03-06] MED LIST changes: +ACET-1079 PO; +ACETAMINOPHEN IV 100 ML IV ONE; +ATOR20TA50 PO; -AUG875T PO; +CELECOXIB 100 MG CAP ONE; -CLOB0.05 TOP; +DICL1.3P TD; +DICL1GEL59 EX; +ESMOLOL HCL 10 ML IV ONE; +FLUMAZENIL 0.1 MG/ML INJ 10ML MDV IV PRN; +GABAPENTIN 300 MG CAP ONE; +GABAPENTIN 300 MG CAP PO ONE; +GLYCOPYRROLATE 0.2 MG/ML 1ML VIAL ONE; -IBUP-1456 PO; +KETAMINE 50mg/ML 1ml syringe ONE; +KETOROLAC TROMETH 30 MG/ML 1ML VIAL ONE; -LIDO5PAD12 EX; +LIDOCAINE 2% (LOCAL ANESTH.) PF 5ml SDV ONE; +NALOXONE HCL 0.4 MG/ML VIAL IV PRN; +ONDANSETRON HCL 4 MG/2 ML VIAL ONE; +PROPOFOL 10 MG/ML 20 ML IV ONE; +ROCURONIUM 10MG/ML 10ML VIAL IV ONE; -SCOP1DIS TD; +SEMA4INJ SC; +SUGAMMADEX 200mg/2ml Vial (100MG/ML) IV ONE; +ceFAZolin 2 GM/D5W50ml 50 ML IV ONE; +fentaNYL CITRATE 100 MCG/2 ML VL IV PRN; +fentaNYL CITRATE 100 MCG/2 ML VL ONE
[2025-03-06] MEDS: CELECOXIB 100 MG CAP PO ONE (07:45)
[2025-03-06] MEDS: ACETAMINOPHEN IV 1000 MG/100ML (10MG/ML) IV ONE (07:45)
--- NOTE | 2025-03-06 08:16 | DVHOP2 ---
Operative Report - 2 Report Details Date: 03/06/25 Preop Diagnosis: 1. Left foot achilles tendonitis 2. Left foot haglunds deformity 3. Left foot calcaneal bone spur Postop Diagnosis: Same as preop Surgeon: Terry Padilla MD Anesthesiologist: See anesthesia Anesthesia: General Implant: Arthrex speed bridge Consent: The patient was informed of the risks and benefits of the procedure. These include but are not limited to complications of anesthesia, postoperative infection, incomplete relief of symptoms, recurrence of symptoms, damage to blood vessels, nerves and tendons, deep venous thrombosis, pulmonary embolism and possible need for repeat surgery in the future. Complications: None Estimated Blood Loss: Minimal Fluids: See anesthesia Findings: Consistent with the diagnosis Indications for Surgery: Worsening left foot pain Name of Procedure Performed 1. Left foot calcaneal bone spur exicsion (00389) 2. Left achilles debridement (15857) Procedure Details Procedure Details: PRE-PROCEDURE INFORMATION: In the pre-op holding area, the extremity to be operated on was clearly marked and the patient verified correct laterality of the marking. The patient was transferred to the OR table and placed in a supine position. A timeout was performed in which identification of the correct patient, procedure, location, and materials was done. The left foot and leg were prepped and draped in normal sterile fashion. The foot and leg were exsanguinated and the thigh tourniquet was inflated to 250 mmHg. DESCRIPTION OF PROCEDURE: Attention was directed to the left posterior heel where a curvilinear incision was made over the posterior heel. Care was taken throughout dissection to avoid damage to neurovascular or tendinous structures. This incision was designed in a manner that, as the incision was deepened to the level of the Achilles, there were 2 flaps that were able to be opened and sutured down so as to be able to gain excellent exposure to the Achilles tendon. The peritenon was incised to be able to reveal the tendon, which appeared to have microtearing and fibrosis. All devitalized tissue and fibrosis was debrided off of the Achilles tendon. The Achilles was then detached from the posterior heel where the large exostosis was identified. Utilizing osteotomes, bone rasps, and other instrumentation, the exostosis of the posterior calcaneus was adequately resected. The area was smoothed down with bone rasps and revealed a normal posterior calcaneus after resection of the exostosis. Next, the Achilles tendon was reattached to the posterior calcaneus using the Arthrex SpeedBridge set consisting of bone anchors and the suture material. After the SpeedBridge set was used, the Achilles appeared to be well reattached to the posterior calcaneus and there appeared to be no immediate complications from that reattachment. All surgical wounds were irrigated copiously with saline and closed in layers with the aforementioned suture material. A dry sterile dressing was placed on the surgical extremity. The patient was placed in a cam boot POSTOPERATIVE INFORMATION: The patient tolerated the above noted procedure and anesthesia well and was transferred to the PACU with vital signs stable, and vascular status intact with capillary refill intact to all digits. Postoperative instructions reviewed in detail with the patient with written instructions provided. Patient will return to clinic in approximately 10-14 days for first postoperative visit. Patient has the number of the clinic and was instructed to call prior to that time should any problems, questions, or concerns arise. Condition Good Disposition Home Visit Coding Podiatry Date of Service if different f: Mar 06, 2025 Billing Provider: TERRY PADILLA DPM Podiatry Common Visit Codes: PROCEDURE ONLY TERRY PADILLA DPM Mar 06, 2025 08:16
[2025-03-06] MEDS: BUPIVACAINE 0.5% P/F INJ 10 ML VIAL ONE (08:56)
[2025-03-06 09:20] VITALS: PULSE 20; RESP 20; TEMP 97.4; O2SAT 95
[2025-03-06] MEDS: hydrALAZINE HCL 20 MG/ML VL IV PRN (10:06)
[2025-03-06] MEDS: HYDROmorphone HCL 2 MG/ML VL/or syr IV PRN (10:10)
[2025-03-06] MEDS: ONDANSETRON HCL 4 MG/2 ML VIAL IV PRN (11:07)
[2025-03-06 11:45] VITALS: BP 175/83; PULSE 81; RESP 21; O2SAT 96
== END | disposition home or self-care (01) ==
LOC: SUR 06:42
PROVIDERS: ATTEND Podiatrist
DX: M76.62 Achilles tendinitis, left leg (principal); M77.32 Calcaneal spur, left foot; M92.62 Juvenile osteochondrosis of tarsus, left ankle; E11.9 Type 2 diabetes mellitus without complications; E66.9 Obesity, unspecified; Z68.35 Body mass index [BMI] 35.0-35.9, adult; Z79.84 Long term (current) use of oral hypoglycemic drugs; Z79.899 Other long term (current) drug therapy; Z98.890 Other specified postprocedural states; Z82.49 Family history of ischemic heart disease and other diseases of the circulatory system; Z83.3 Family history of diabetes mellitus
CPT/HCPCS: 27654; 28119; 36415; 80053; 81003; 82962; 85007; 85027; 85610; 85730; C1713; J0169; J0360; J0690; J1100; J1171; J1885; J2003; J2405; J2704; J3010; J3490; J0131

== ENCOUNTER → 2025-03-15 | Outpatient (CLI) | payer BC, MEDICARE ==
[~2025-03-15] MED LIST changes: -ACETAMINOPHEN IV 100 ML IV ONE; -CELECOXIB 100 MG CAP ONE; -ESMOLOL HCL 10 ML IV ONE; -FLUMAZENIL 0.1 MG/ML INJ 10ML MDV IV PRN; -GABAPENTIN 300 MG CAP ONE; -GABAPENTIN 300 MG CAP PO ONE; -GLYCOPYRROLATE 0.2 MG/ML 1ML VIAL ONE; -KETAMINE 50mg/ML 1ml syringe ONE; -KETOROLAC TROMETH 30 MG/ML 1ML VIAL ONE; -LIDOCAINE 2% (LOCAL ANESTH.) PF 5ml SDV ONE; -NALOXONE HCL 0.4 MG/ML VIAL IV PRN; -ONDANSETRON HCL 4 MG/2 ML VIAL ONE; -PROPOFOL 10 MG/ML 20 ML IV ONE; -ROCURONIUM 10MG/ML 10ML VIAL IV ONE; -SUGAMMADEX 200mg/2ml Vial (100MG/ML) IV ONE; -ceFAZolin 2 GM/D5W50ml 50 ML IV ONE; -fentaNYL CITRATE 100 MCG/2 ML VL IV PRN; -fentaNYL CITRATE 100 MCG/2 ML VL ONE
[2025-03-15 08:58] LABS: Hemoglobin 11.6 g/dL (12.2-16.2); Mean Corpuscular Hemoglobin 22.2 pg (28.0-32.0)
[2025-03-15 09:00] LABS: Hematocrit 36.1 % (36.0-46.0); Mean Corpuscular Volume 69.3 fL (80.0-100.0)
[2025-03-15 09:20] LABS: Alanine Aminotransferase 12 U/L (7-40); Albumin 4.2 g/dL (3.2-4.8); Anion Gap 9 (5-15); BUN/Creatinine Ratio 14.8 (10.0-20.0); Bilirubin, Total 0.6 mg/dL (0.2-1.0); Blood Urea Nitrogen 12 mg/dL (9-23); Calcium 8.9 mg/dL (8.7-10.4); Carbon Dioxide 29 mmol/L (20-31); Potassium 3.6 mmol/L (3.5-5.1); Sodium 145 mmol/L (136-145); Total Protein 7.1 g/dL (5.7-8.2); Uric Acid 5.8 mg/dL (3.1-7.8)
[2025-03-15 09:23] LABS: Alkaline Phosphatase 116 U/L (46-116); Chloride 107 mmol/L (98-107); Glucose 142 mg/dL (74-106)
[2025-03-15 12:10] LABS: Total Cells Counted 100.0 (100)
[2025-03-15 14:12] LABS: Urine Protein, UAD Negative (Negative)
[2025-03-15 14:40] LABS: Microalb/Creat Ratio, Urine 6.0
== END | disposition home or self-care (01) ==
LOC: LAB 08:11
PROVIDERS: ATTEND Internal Medicine
DX: E11.22 Type 2 diabetes mellitus with diabetic chronic kidney disease (principal); E11.21 Type 2 diabetes mellitus with diabetic nephropathy; N18.30 Chronic kidney disease, stage 3 unspecified; D63.1 Anemia in chronic kidney disease; E21.3 Hyperparathyroidism, unspecified; E55.9 Vitamin D deficiency, unspecified; N39.0 Urinary tract infection, site not specified; M10.9 Gout, unspecified; R80.9 Proteinuria, unspecified
CPT/HCPCS: 36415; 80053; 80069; 81001; 82043; 82306; 82570; 83036; 83970; 84550; 85007; 85027

== ENCOUNTER 2025-05-17 11:37 | Emergency (ER) | payer BC, MEDICARE ==
[~2025-05-17] VITALS: Ht 180.3 cm; Wt 109.5 kg
--- NOTE | 2025-05-17 11:59 | ED.PDOC ---
Musculoskeletal HPI Comments A 65 YEAR OLD FEMALE PRESENTS TO THE ED WITH COMPLAINT OF LEFT FOOT PAIN AND SWELLING. PATIENT STATES SHE RECENTLY HAD SURGERY TO FIX A CALCANEAL SPUR ON HER LEFT FOOT 2 MONTHS AGO, AND BEGAN TO EXPERIENCE SWELLING AND INCREASED PAIN SHORTLY AFTER THE SURGERY. PATIENT REPORTS HER PAIN AND SWELLING HAS NEVER WHEN DOWN PROMPTING HER VISIT TO THE ED TODAY. PATIENT DENIES FEVER, CHILLS, SHORTNESS OF BREATH, CHEST PAIN, ABDOMINAL PAIN, NAUSEA, VOMITING, HEADACHE, OR OTHER COMPLAINTS. NO OTHER SYMPTOMS OR MODIFYING FACTORS AT THIS TIME. PATIENT IS ALERT, ORIENTED X 4, AND HAS STEADY GAIT. Chief Complaint: Lower Extremity Time Seen by MD: 11:52 Primary Care Provider: Lorenza Reviewed Notes: Nurses Notes, Medications, Allergies Allergies: Coded Allergies: NO KNOWN ALLERGIES (Unverified , 03/06/25) Home Meds Active Scripts Ibuprofen (Ibuprofen) 800 Mg Tab, 1 TAB PO TID, #60 TAB Prov:MALLIKA POLLOCK 05/17/25 Meclizine HCl (Meclizine 25) 25 Mg Tab, 25 MG PO BID, #30 TAB Prov:MALLIKA POLLOCK 12/23/23 Potassium Chloride (Klor-Con M10) 10 Meq Tab, 1 TAB PO DAILY, #30 TAB 1 Refill Prov:MALLIKA POLLOCK 03/18/23 Reported Medications Semaglutide (Ozempic) 4 Mg/3 Ml Inj, 4 MG SC, INJ 03/01/25 Diclofenac Epolamine (Flector) 1.3 % Dis, 1.3 % TD, DIS 03/01/25 Acetaminophen (Tylenol) 325 Mg Tb, 325 MG PO, TAB 03/01/25 Diclofenac Sodium (Topical) (Voltaren Arthritis Pain) 1 % Gel, 1 % EX, GEL 03/01/25 Atorvastatin Calcium (ATORVASTATIN CALCIUM) 20 Mg Tab, 1 TAB PO DAILY, #90 TAB 3 Refills 03/01/25 Ergocalciferol (Vitamin D) 50,000 Unit Cap, 1 CAP PO QWEEKLY 06/22/24 Metoprolol Succinate (Metoprolol Succinate Er) 100 Mg Tab, 1 TAB PO DAILY 06/22/24 Hctz (Hydrochlorothiazide) 25 Mg Tab, 1 TAB PO DAILY 06/22/24 Lisinopril (Lisinopril) 40 Mg Tab, 1 TAB PO DAILY 06/22/24 Nifedipine (Nifedipine Er) 90 Mg Tab, 1 TAB PO DAILY 06/22/24 Metformin Hydrochloride (Metformin Hcl) 1,000 Mg Tab, 1 TAB PO BID 06/22/24 Information Source: Patient Mode of Arrival: Ambulatory Location: Left Extremity Location: Foot Timing: Weeks Prehospital treatment: None Severity: Moderate Able to Move Extremity: Yes Bear Weight: Fully Pain: Moderate Mechanism: Spontaneous, Other (RECENT SURGERY) Circumstances: Spontaneous, Other (RECENT SURGERY) Onset of Symptoms: Spontaneous Symptoms: Swelling, Pain DVT Risk Factors: Recent surgery Last Tetanus: Unknown Associated signs and symptoms: Foot pain Past Medical History PAST MEDICAL HISTORY: Arthritis, DM, High Lipids, HTN Surgical History: Denies all surgeries GLUER AND WEDGER History: Denies all GLUER AND WEDGER Hx Family History Family History: Reviewed,noncontributory to illness Social History Smoker: Non-Smoker Alcohol: Denies ETOH Use Drugs: Denies Drug Use Lives In: Home Constitutional: denies: chills, diaphoresis, fatigue, fever, malaise, sweats, weakness, others EENTM: denies: blurred vision, double vision, ear bleeding, ear discharge, ear drainage, ear pain, ear ringing, eye pain, eye redness, hearing loss, mouth pain, mouth swelling, nasal discharge, nose bleeding, nose congestion, nose pain, photophobia, tearing, throat pain, throat swelling, voice changes, others Respiratory: denies: cough, hemoptysis, orthopnea, SOB at rest, shortness of breath, SOB with excertion, stridor, wheezing, others Cardiovascular: denies: chest pain, dizzy spells, diaphoresis, Dyspnea on exertion, edema, irregular heart beat, left arm pain, lightheadedness, palpitations, PND, syncope, others Gastrointestinal: denies: abdomen distended, abdominal pain, blood streaked bowels, constipated, diarrhea, dysphagia, difficulty swallowing, hematemesis, melena, nausea, poor appetite, poor fluid intake, rectal bleeding, rectal pain, vomiting, others Genitourinary: denies: abnormal vagina bleeding, burning, dyspareunia, dysuria, flank pain, frequency, hematuria, incontinence, pain, , vagina dischar ge, urgency, others Neurological: denies: dizziness, fainting, headache, left sided numbness, left sided weakness, numbness, paresthesia, pre-existing deficit, right sided numbness, right sided weakness, seizure, speech problems, tingling, tremors, weakness, others Musculoskeletal: reports: joint pain, joint swelling, others (LEFT FOOT PAIN AND SWOLLEN); denies: back pain, gout, muscle pain, muscle stiffness, neck pain Integumetry: denies: bruises, change in color, change in hair/nails, dryness, laceration, lesions, lumps, rash, wounds, others Allergic/Immunocompromised: denies: Difficulty Healing, Frequent Infections, Hives, Itching, others Hematologic/Lymphatic: denies: anemia, blood clots, easy bleeding, easy b ruising, swollen glands, others Endocrine: denies: excessive hunger, excessive sweating, excessive thirst, excessive urination, flushing, intolerance to cold, intolerance to heat, unexplained weight gain, unexplained weight loss, others Psychiatric: denies: anxiety, bipolar disorder, depression, hopeless, panic disorder, schizophrenia, sleepless, suicidal, others All Other Systems: Reviewed and Negative Physical Exam General Appearance: No Apparent Distress, Normal HEENT: Normal ENT Inspection, PERRL/EOMI, Pharynx Normal, TMs Normal Neck: Full Range of Motion, Non-Tender, Normal, Normal Inspection Respiratory: Chest Non-Tender, Lungs Clear, No Accessory Muscle Use, No Respiratory Distress, Normal Breath Sounds Cardiovascular: No Edema, No JVD, No Murmur, No Gallop, Normal Peripheral Pulses, Regular Rate/Rhythm Breast Exam: Deferred Gastrointestinal: No Organomegaly, Non Tender, No Pulsatile Mass, Normal Bowel Sounds, Soft Genitalia: Deferred Pelvic: Deferred Rectal: Deferred Extremities: Decreased range of motion (SLIGHTLY. ), No calf tenderness, Normal capillary refill, No pedal edema, Tender (AND MILD SWELLING ON LEFT HEEL REGION, NO BONY TENDERNESS AND DEFORMOITY. ) Musculoskeletal : Apperance: Normal Neurologic: Alert, columnist II-XII nml as Tested, No Motor Deficits, Normal Affect, Normal Mood, No Sensory Deficits Cerebellar Function: Normal Reflexes: Normal Skin: Dry, Normal Color, Warm, Other (HEALING INCISION WOUND ON LEFT HEEL REGION, NO REDNESS AND INFECTION SIGNS. ) Peripheral Pulses: 2+ carotid (R), 2+ carotid (L), 2+ dorsalis pedis (R), 2+ dorsalis pedis (L) Lymphatic: No Adenopathy Was a procedure done? Was a procedure done?: No Differential Diagnosis EXT Differential Diagnosis: Cellulitis, Deep Vein Thrombosis, Gout, DJD, Arthritis X-Ray, Labs, Meds, VS Vital Signs Date Time Temp Pulse Resp B/P (MAP) Pulse Ox O2 Delivery O2 Flow Rate FiO2 05/17/25 13:48 98.1 105 18 159/97 (117) 98 98.1 05/17/25 13:48 105 18 98 Room Air 05/17/25 11:39 98.1 105 18 159/97 98 98.1 Lab Test 05/17/25 12:05 Range/Units White Blood Count 5.9 4.4-10.8 10^3/uL Red Blood Count 5.21 H 4.0-5.20 10^6/uL Hemoglobin 11.2 L 12.2-16.2 g/dL Hematocrit 35.7 L 36.0-46.0 % Mean Corpuscular Volume 68.5 L 80.0-100.0 fL Mean Corpuscular Hemoglobin 21.6 L 28.0-32.0 pg Mean Corpuscular Hemoglobin Concent 31.5 L 32.0-36.0 g/dL Red Cell Distribution Width 16.0 H 11.8-14.3 % Platelet Count 292 140-450 10^3/uL Mean Platelet Volume 7.9 6.9-10.8 fL Neutrophils (%) (Auto) 41.3 37.0-80.0 % Lymphocytes (%) (Auto) 46.9 10.0-50.0 % Monocytes (%) (Auto) 7.9 0.0-12.0 % Eosinophils (%) (Auto) 3.4 0.0-7.0 % Basophils (%) (Auto) 0.5 0.0-2.0 % Neutrophils # (Auto) 2.4 1.6-8.6 10 ^3/uL Lymphocytes # (Auto) 2.8 0.4-5.4 10 ^3/uL Monocytes # (Auto) 0.5 0-1.3 10 ^3/uL Eosinophils # (Auto) 0.2 0-0.8 10 ^3/uL Basophils # (Auto) 0 0-0.2 10 ^3/uL Nucleated Red Blood Cells 0.1 % Erythrocyte Sedimentation Rate 13 0-20 mm/hr Sodium Level 143 136-145 mmol/L Potassium Level 3.1 L 3.5-5.1 mmol/L Chloride Level 105 98-107 mmol/L Carbon Dioxide Level 30 20-31 mmol/L Anion Gap 8 5-15 Blood Urea Nitrogen 8 L 9-23 mg/dL Creatinine 0.67 0.550-1.02 mg/dL Glomerular Filtration Rate Calc 96 >90 mL/min BUN/Creatinine Ratio 11.9 10.0-20.0 Serum Glucose 130 H 74-106 mg/dL Uric Acid 6.2 3.1-7.8 mg/dL Calcium Level 8.7 8.7-10.4 mg/dL Current Medications Medications (Trade) Dose Ordered Sig/Garth Route Start Time Stop Time Status Last Admin Ketorolac Tromethamine (Toradol Injection) 60 mg ONCE ONCE IM 05/17/25 13:45 05/17/25 13:46 DC 05/17/25 13:46 Potassium Chloride (Klor-Con Tablet) 40 meq ONCE ONCE PO 05/17/25 13:45 05/17/25 13:46 DC 05/17/25 13:46 EXAM: XY L FOOT 3 VIEW XRAY HISTORY: HEEL PAIN POST SURGERY 2 MONTHS AGO COMPARISON: None. TECHNIQUE: Three views of the left foot were performed. FINDINGS: No acute fracture or dislocation are identified about the left foot. Degenerative changes in the 1st metatarsophalangeal joint. IMPRESSION: 1. No acute fracture or dislocation of the left foot. 2. Degenerative changes in the 1st MTP joint. ATED BY: NANCY LOPEZ MD DICTATED DATE/TIME: 05/17/25 123 SIGNED BY: NANCY LOPEZ MD SIGNED DATE/TIME: 05/17/25 123 CC: X-Ray, Labs, Meds, VS Comment EXTERNAL MEDICAL RECORDS REVIEWED: [NONE] INDEPENDENT HISTORIANS: [NONE] SOCIAL DETERMINANTS OF HEALTH: [NONE] LABS ORDERED: CBC, BMP, URIC ACID, ESR REVIEWED AND INTERPRETED RESULTS: K 3.1 IMAGING ORDERED: XR FOOT LT TREATMENTS ORDERED: TORADOL 60 MG IM, POTASSIUM 40 MEQ PO PROCEDURES PERFORMED: NONE CRITICAL CARE TIME: NONE I HAVE DISCUSSED THE PATIENT WITH THE ATTENDING PHYSICIAN DR. CUNHA AND HE AGREES WITH THE PATIENT'S PLAN OF CARE AND DISPOSITION. BASED ON HISTORY OF PRESENT ILLNESS, AND PHYSICAL EXAM, PATIENT WILL BE DISCHARGED HOME. DISCUSSED PLAN FOR DISCHARGE HOME WITH RX [IBUPROFEN 800 MG]. MEDICATION WARNINGS GIVEN. SHARED DECISION MAKING: DISCUSSED WITH PATIENT THAT THEIR WORKUP WAS NORMAL. PATIENT INSTRUCTED TO FOLLOW UP WITH PRIMARY CARE PROVIDER IN 1-2 DAYS FOR RE- EVALUATION OF SYMPTOMS. PATIENT VERBALIZES UNDERSTANDING TO RETURN TO ED FOR NEW OR WORSENING SYMPTOMS OR IF FOLLOW UP WITH PCP CANNOT BE OBTAINED. PATIENT FEELS COMFORTABLE GOING HOME AT THIS TIME. ALL QUESTIONS ADDRESSED AT TIME OF DISCHARGE. Images Reviewed?: Images reviewed and evaluated by me Time of 1ST Reevaluation: 14:00 Reevaluation 1ST: Improved Patient Education/Counseling: Diagnosis, Treatment, Need For Follow Up Family Education/Counseling: Diagnosis, Treatment, Need For Follow Up Medical Screening: No EMC Exist At This Time Departure 1 Departure Time of Disposition: 14:00 Impression: Primary Impression: Postoperative pain Additional Impression: Hypokalemia Disposition: 01 HOME / SELF CARE / HOMELESS Condition: Stable Additional Instructions: FOLLOW-UP WITH PCP IN 1 TO 2 DAYS. TAKE MEDICATIONS PRESCRIBED. RETURN TO ED FOR ANY NEW OR WORSENING SYMPTOMS. e-Prescriptions Ibuprofen (Ibuprofen) 800 Mg Tab 1 TAB PO TID, #60 TAB Prov: MALLIKA POLLOCK 05/17/25 Discharged With: Self Critical Care Note Critical Care Time?: No Stability Stability form required: No I personally scribed for MALLIKA POLLOCK ([email or web address]) on 05/17/25 at 11:59. Electronically submitted by Norberto Goldstein ([email or web address]). I personally scribed for MALLIKA POLLOCK ([email or web address]) on 05/17/25 at 13:33. Electronically submitted by Norberto Goldstein ([email or web address]). MALLIKA POLLOCK May 17, 2025 11:59
[2025-05-17 12:28] LABS: Nucleated Red Blood Cells % 0.1 %
[2025-05-17 12:30] LABS: Hematocrit 35.7 % (36.0-46.0); Hemoglobin 11.2 g/dL (12.2-16.2); Mean Corpuscular Hemoglobin 21.6 pg (28.0-32.0); Mean Corpuscular Volume 68.5 fL (80.0-100.0)
[2025-05-17 12:37] LABS: Chloride 105 mmol/L (98-107); Potassium 3.1 mmol/L (3.5-5.1); Sodium 143 mmol/L (136-145)
--- NOTE | 2025-05-17 12:37 | DVH ---
EXAM: XY L FOOT 3 VIEW XRAY HISTORY: HEEL PAIN POST SURGERY 2 MONTHS AGO COMPARISON: None. TECHNIQUE: Three views of the left foot were performed. FINDINGS: No acute fracture or dislocation are identified about the left foot. Degenerative changes in the 1st metatarsophalangeal joint. IMPRESSION: 1. No acute fracture or dislocation of the left foot. 2. Degenerative changes in the 1st MTP joint.
[2025-05-17 12:38] LABS: Anion Gap 8 (5-15); Calcium 8.7 mg/dL (8.7-10.4); Carbon Dioxide 30 mmol/L (20-31)
[2025-05-17 12:42] LABS: Uric Acid 6.2 mg/dL (3.1-7.8)
[2025-05-17 12:43] LABS: BUN/Creatinine Ratio 11.9 (10.0-20.0)
[2025-05-17 12:44] LABS: Blood Urea Nitrogen 8 mg/dL (9-23); Glucose 130 mg/dL (74-106)
[2025-05-17] MEDS ORDERED: IBUP-1456 PO (13:33)
[2025-05-17] MEDS: POTASSIUM CHL 20 Meq TABLET PO ONE (13:46)
[2025-05-17] MEDS: KETOROLAC TROMETH 60MG/2ML VIAL IM ONE (13:46)
[2025-05-17 13:48] VITALS: BP 159/97; PULSE 105; RESP 18; TEMP 98.1; O2SAT 98
== END 2025-05-17 13:36 | disposition home or self-care (01) ==
LOC: ER 11:37
DX: G89.18 Other acute postprocedural pain (principal); E87.6 Hypokalemia; I10 Essential (primary) hypertension; E11.9 Type 2 diabetes mellitus without complications; M19.072 Primary osteoarthritis, left ankle and foot; E78.5 Hyperlipidemia, unspecified; Z79.899 Other long term (current) drug therapy; Z79.84 Long term (current) use of oral hypoglycemic drugs; Z79.1 Long term (current) use of non-steroidal anti-inflammatories (NSAID)
CPT/HCPCS: 36415; 73630; 80048; 84550; 85025; 85652; 96372; 99284; J1885

== ENCOUNTER 2025-07-11 22:08 | Emergency (ER) | payer BC, MEDICARE ==
[~2025-07-11] VITALS: Ht 180.3 cm; Wt 111.6 kg
[~2025-07-11 22:08] MED LIST changes: +IBUP-1456 PO
--- NOTE | 2025-07-11 22:44 | ED.PDOC ---
History of Present Illness HPI Comments 65-year-old female who came to ER for high blood pressure. Patient has a history of hypertension has good compliance to her medications. Patient admits that she did not take her blood pressure medications today because he had some alcohol. Noted that she was having left-sided epistaxis earlier, and noted that her blood pressure was elevated at 235/104 mm Hg. Patient states usually has epistaxis whenever blood pressure is high. Denies any headaches or chest pains. Upon arrival, blood pressure is 213/98 mm Hg REVIEW OF SYSTEMS: General: No fever, no chills, or fatigue HEENT: No sore throat, no earache, no congestion, no neck pain. (+) epistaxis Cardiac: No chest pain. No palpitations. Lungs: No shortness of breath, no cough. GI: No nausea, no vomiting, no diarrhea, no constipation, no abdominal pain : No dysuria, frequency, or urgency. No hematuria. Musculoskeletal: No joint pain , no joint swelling, no extremity edema. Skin: No rash, no itching. Neuro: No headache, no dizziness, no weakness EXAM: General: Awake, alert and oriented. No acute distress. Skin: Skin in warm, dry and intact. Appropriate color for ethnicity. HEENT: The head is normocephalic and atraumatic. Conjunctivae are clear without exudates or hemorrhage. Sclera is non-icteric. EOM are intact. No signs of nystagmus. Eyelids are normal in appearance without swelling or lesions. Oral mucosa is pink and moist dried blood in left naris. No active epistaxis Neck: The neck is supple with normal range of motion. No JVD. Cardiac: Heart rate and rhythm are normal. No murmurs, gallops, or rubs are auscultated. Respiratory: No signs of respiratory distress. Lung sounds are clear in all lobes bilaterally without rales, rhonchi, or wheezes. Abdominal: Abdomen is soft, non-tender without distention. Bowel sounds are present and normoactive in all four quadrants. Extremities: Upper and lower extremities are atraumatic in appearance without deformity or edema. Neurological: The patient is awake, alert and oriented to person, place, and time with normal speech. Speech is clear. There is no facial asymmetry. Psychiatric: Appropriate mood and affect. Good judgement and insight Chief Complaint: High Blood Pressure Time Seen by MD: 22:13 Primary Care Provider: Lorenza Allergies: Coded Allergies: NO KNOWN ALLERGIES (Unverified , 03/06/25) Home Meds Active Scripts Ibuprofen (Ibuprofen) 800 Mg Tab, 1 TAB PO TID, #60 TAB Prov:MALLIKA POLLOCK 05/17/25 Meclizine HCl (Meclizine 25) 25 Mg Tab, 25 MG PO BID, #30 TAB Prov:MALLIKA POLLOCK 12/23/23 Potassium Chloride (Klor-Con M10) 10 Meq Tab, 1 TAB PO DAILY, #30 TAB 1 Refill Prov:MALLIKA POLLOCK 03/18/23 Reported Medications Semaglutide (Ozempic) 4 Mg/3 Ml Inj, 4 MG SC, INJ 03/01/25 Diclofenac Epolamine (Flector) 1.3 % Dis, 1.3 % TD, DIS 03/01/25 Acetaminophen (Tylenol) 325 Mg Tb, 325 MG PO, TAB 03/01/25 Diclofenac Sodium (Topical) (Voltaren Arthritis Pain) 1 % Gel, 1 % EX, GEL 03/01/25 Atorvastatin Calcium (ATORVASTATIN CALCIUM) 20 Mg Tab, 1 TAB PO DAILY, #90 TAB 3 Refills 03/01/25 Ergocalciferol (Vitamin D) 50,000 Unit Cap, 1 CAP PO QWEEKLY 06/22/24 Metoprolol Succinate (Metoprolol Succinate Er) 100 Mg Tab, 1 TAB PO DAILY 06/22/24 Hctz (Hydrochlorothiazide) 25 Mg Tab, 1 TAB PO DAILY 06/22/24 Lisinopril (Lisinopril) 40 Mg Tab, 1 TAB PO DAILY 06/22/24 Nifedipine (Nifedipine Er) 90 Mg Tab, 1 TAB PO DAILY 06/22/24 Metformin Hydrochloride (Metformin Hcl) 1,000 Mg Tab, 1 TAB PO BID 06/22/24 Mode of Arrival: Ambulatory Past Medical History PAST MEDICAL HISTORY: Arthritis, DM, High Lipids, HTN Surgical History: Denies all surgeries CHILD AND FAMILY THERAPIST History: Denies all CHILD AND FAMILY THERAPIST Hx Family History Family History: Reviewed,noncontributory to illness Social History Smoker: Non-Smoker Alcohol: Denies ETOH Use Drugs: Denies Drug Use Lives In: Home Was a procedure done? Was a procedure done?: No Differential Dx Considerations may include: Differential diagnoses considered include but are not limited to Hypertensive emergency, hypertensive urgency, aortic dissection, ICH, acute coronary syndrome, acute pulmonary edema, CHF, acute kidney injury, white coat syndrome, essential hypertension, other X-Ray, Labs, Meds, VS Vital Signs Date Time Temp Pulse Resp B/P (MAP) Pulse Ox O2 Delivery O2 Flow Rate FiO2 07/12/25 00:43 97.3 76 20 137/71 (93) 99 97.3 07/11/25 23:48 179/68 07/11/25 23:30 98.3 71 20 179/68 (105) 99 98.3 07/11/25 22:48 190/98 07/11/25 22:36 89 20 96 Room Air 07/11/25 22:36 85 20 190/98 (128) 100 07/11/25 22:11 97.7 112 16 218/98 97 97.7 Lab Test 07/11/25 22:42 Range/Units White Blood Count 5.6 4.4-10.8 10^3/uL Red Blood Count 5.09 4.0-5.20 10^6/uL Hemoglobin 10.8 L 12.2-16.2 g/dL Hematocrit 35.3 L 36.0-46.0 % Mean Corpuscular Volume 69.4 L 80.0-100.0 fL Mean Corpuscular Hemoglobin 21.2 L 28.0-32.0 pg Mean Corpuscular Hemoglobin Concent 30.6 L 32.0-36.0 g/dL Red Cell Distribution Width 16.4 H 11.8-14.3 % Platelet Count 332 140-450 10^3/uL Mean Platelet Volume 7.9 6.9-10.8 fL Neutrophils (%) (Auto) 31.0 L 37.0-80.0 % Lymphocytes (%) (Auto) 55.5 H 10.0-50.0 % Monocytes (%) (Auto) 10.1 0.0-12.0 % Eosinophils (%) (Auto) 2.7 0.0-7.0 % Basophils (%) (Auto) 0.7 0.0-2.0 % Neutrophils # (Auto) 1.7 1.6-8.6 10 ^3/uL Lymphocytes # (Auto) 3.1 0.4-5.4 10 ^3/uL Monocytes # (Auto) 0.6 0-1.3 10 ^3/uL Eosinophils # (Auto) 0.2 0-0.8 10 ^3/uL Basophils # (Auto) 0 0-0.2 10 ^3/uL Nucleated Red Blood Cells 0.1 % Sodium Level 142 136-145 mmol/L Potassium Level 3.8 3.5-5.1 mmol/L Chloride Level 108 H 98-107 mmol/L Carbon Dioxide Level 27 20-31 mmol/L Anion Gap 7 5-15 Blood Urea Nitrogen 13 9-23 mg/dL Creatinine 0.79 0.550-1.02 mg/dL Glomerular Filtration Rate Calc 82 >90 mL/min BUN/Creatinine Ratio 16.5 10.0-20.0 Serum Glucose 175 H 74-106 mg/dL Calcium Level 9.1 8.7-10.4 mg/dL Troponin I High Sensitivity 4 </=34 ng/L B-Type Natriuretic Peptide 43.92 0-100 pg/mL Time of 1ST Reevaluation: 22:39 Reevaluation 1ST: Unchanged Patient Education/Counseling: Need For Follow Up Family Education/Counseling: No Family Present SEPSIS Sepsis Screen Date sepsis recognized/suspect: Jul 11, 2025 Time Sepsis recognized/suspect: 2212 Recent Procedure: No On Antibiotic Therapy: No Respiratory Rate >20: No Heart Rate >90: No Temp<36 C (96.8 F) or >38.3 C: No SBP <90 or MAP <65 mmHG: No New Acute Mental Status Change: No Is the patient on CPAP, BIPAP,: No Physician Orders Electrocardigram (07/11/25 22:36) Vital Signs Date Time Temp Pulse Resp B/P (MAP) Pulse Ox O2 Delivery O2 Flow Rate FiO2 07/12/25 00:43 97.3 76 20 137/71 (93) 99 97.3 07/11/25 23:48 179/68 07/11/25 23:30 98.3 71 20 179/68 (105) 99 98.3 07/11/25 22:48 190/98 07/11/25 22:36 89 20 96 Room Air 07/11/25 22:36 85 20 190/98 (128) 100 07/11/25 22:11 97.7 112 16 218/98 97 97.7 Laboratory Tests Test 07/11/25 22:42 White Blood Count 5.6 10^3/uL (4.4-10.8) Departure 1 Departure Time of Disposition: 00:09 Impression: Primary Impression: Hypertension Additional Impressions: Nosebleed Anemia Disposition: HOME / SELF CARE / HOMELESS Condition: Stable Additional Instructions: ED DISCHARGE INSTRUCTIONS Instructions: Please read all instructions provided in this packet carefully. Please be sure to take all medications daily as prescribed. Your labs show that you are anemic today, please follow up with the primary care provider for further treatment. Although you have been discharged from the Emergency Department, this does not mean that you have a "clean bill of health". No definitive diagnosis for your symptoms has been made today. It is possible that you are in the process of developing a serious illness. This is why you must return to the ED without fail if any new or worsening symptoms (especially if your symptoms include chest pain, trouble breathing, abdominal pain, fever, headache, confusion, trouble seeing, or trouble walking) It is also very important that you see a primary care provider (PCP) within the next 3-5 days to follow up. If you are unable to get an appointment, return to the ED for re-evaluation. You had elevated blood pressure reading today. Untreated high blood pressure can have serious consequences. However, you need a follow-up appointment to recheck your blood pressure to determine whether or not you need treatment. Make an appointment with your primary care provider for this within the next week. Nosebleeds: Care Instructions Overview Nosebleeds are common, especially if you have colds or allergies. Many things can cause a nosebleed. Some nosebleeds stop on their own with pressure. Others need packing. Some get cauterized (sealed). If you have gauze or other packing materials in your nose, you will need to follow up with your doctor to have the packing removed. You may need more treatment if you get nosebleeds a lot. Follow-up care is a hassan part of your treatment and safety. Be sure to make and go to all appointments, and call your doctor if you are having problems. It's also a good idea to know your test results and keep a list of the medicines you take. How can you care for yourself at home? If you get another nosebleed: Gently blow your nose to clear any clots. Sit up and tilt your head slightly forward. This keeps blood from going down your throat. Use your thumb and index finger to pinch the front, soft part of your nose shut for at least 15 minutes. Use a clock. Do not check to see if the bleeding has stopped before the 15 minutes are up. If the bleeding has not stopped, pinch your nose shut for another 10 to 15 minutes. Using a nasal decongestant spray such as oxymetazoline (Afrin) before pinching your nose can also help to stop the bleeding. Be safe with medicines. Read and follow all instructions on the label. When the bleeding has stopped, try not to pick, rub, or blow your nose for several hours. Avoiding these things helps keep your nose from bleeding again. To prevent nosebleeds Do not blow your nose too hard. Try not to lift or strain after a nosebleed. Raise your head on a pillow while you sleep. Put a thin layer of a saline- or water-based nasal gel, such as NasoGel, inside your nose. Put it on the septum, which divides your nostrils. This will prevent dryness that can cause nosebleeds. Use a vaporizer or humidifier to add moisture to your bedroom. Follow the directions for cleaning the machine. Do not use aspirin, ibuprofen (Advil, Motrin), or naproxen (Aleve) for 36 to 48 hours after a nosebleed unless your doctor tells you to. You can use acetaminophen (Tylenol) for pain relief. Talk to your doctor about stopping any other medicines you are taking. Some medicines may make you more likely to get a nosebleed. Do not use cold medicines or nasal sprays without first talking to your doctor. They can make your nose dry. Do not snort tobacco, drugs, or any other drying substances up your nose. When should you call for help? Call 911 anytime you think you may need emergency care. For example, call if: You passed out (lost consciousness). Call your doctor now or seek immediate medical care if: Your nose is still bleeding after you have pinched the nose shut 2 times for 15 minutes each time (30 minutes total). There is a lot of blood running down the back of your throat even after you pinch your nose and tilt your head forward. You feel weak or lightheaded. You have a nosebleed after a head injury. Watch closely for changes in your health, and be sure to contact your doctor if: You get nosebleeds often, even if they stop. You do not get better as expected. Comments 65-year-old female who presents to the emergency department with elevated blood pressure, nosebleed. Nosebleed resolved prior to arrival to the emergency department. Patient's blood pressure improved during the ED observation. Patient well-appearing, nontoxic. Advised prompt follow-up with PCP, return to the ED with any new, worsening or concerning symptoms. Critical Care Note Critical Care Time?: Yes (35 min-critical care time only) Stability Stability form required: No Heart Score Heart Score: Heart Score Response (Comments) Value History N/A 0 EKG N/A 0 Age N/A 0 Risk Factors N/A 0 Troponin N/A 0 Total 0 I personally scribed for CORNELIO ESTEVEZ MD ([email or web address]) on 07/11/25 at 22:43. Electronically submitted by Nathan Brooke ([email or web address]). CORNELIO ESTEVEZ MD Jul 11, 2025 22:43
[2025-07-11 22:55] LABS: Hematocrit 35.3 % (36.0-46.0); Hemoglobin 10.8 g/dL (12.2-16.2); Mean Corpuscular Hemoglobin 21.2 pg (28.0-32.0); Mean Corpuscular Volume 69.4 fL (80.0-100.0); Nucleated Red Blood Cells % 0.1 %
[2025-07-11 23:03] LABS: Potassium 3.8 mmol/L (3.5-5.1); Sodium 142 mmol/L (136-145)
[2025-07-11 23:04] LABS: Anion Gap 7 (5-15); Calcium 9.1 mg/dL (8.7-10.4); Carbon Dioxide 27 mmol/L (20-31)
[2025-07-11 23:07] LABS: Chloride 108 mmol/L (98-107)
[2025-07-11 23:09] LABS: BUN/Creatinine Ratio 16.5 (10.0-20.0); Blood Urea Nitrogen 13 mg/dL (9-23)
[2025-07-11 23:26] LABS: Glucose 175 mg/dL (74-106)
[2025-07-13 15:08] VITALS: BP 177/84; PULSE 95; RESP 18; TEMP 98.9; O2SAT 99
--- NOTE | 2025-07-13 17:23 | ED.PDOC ---
History of Present Illness HPI Comments 65 y/o F, with PMHx of DM, HLD, and HTN presents to the ED for CC of hypertension. Patient states, she has been having hypertensive episodes x2days. Patient reports, today (07/13/25) symptoms worsened with bilateral nare epitaxisis. Upon arrival to the ED, patients blood pressure read at 190/98mmHg; endorses taking prescribed medications as instructed. Patient denies headache, nausea, vomiting, photophobia, or dizziness. No other symptoms or modifying factors are present at this time. Chief Complaint: High Blood Pressure Time Seen by MD: 12:00 Primary Care Provider: Lorenza Reviewed Notes: Nurses Notes, Medications, Allergies Allergies: Coded Allergies: NO KNOWN ALLERGIES (Unverified , 03/06/25) Home Meds Active Scripts Ibuprofen (Ibuprofen) 800 Mg Tab, 1 TAB PO TID, #60 TAB Prov:MALLIKA POLLOCK 05/17/25 Meclizine HCl (Meclizine 25) 25 Mg Tab, 25 MG PO BID, #30 TAB Prov:MALLIKA POLLOCK 12/23/23 Potassium Chloride (Klor-Con M10) 10 Meq Tab, 1 TAB PO DAILY, #30 TAB 1 Refill Prov:MALLIKA POLLOCK 03/18/23 Reported Medications Semaglutide (Ozempic) 4 Mg/3 Ml Inj, 4 MG SC, INJ 03/01/25 Diclofenac Epolamine (Flector) 1.3 % Dis, 1.3 % TD, DIS 03/01/25 Acetaminophen (Tylenol) 325 Mg Tb, 325 MG PO, TAB 03/01/25 Diclofenac Sodium (Topical) (Voltaren Arthritis Pain) 1 % Gel, 1 % EX, GEL 03/01/25 Atorvastatin Calcium (ATORVASTATIN CALCIUM) 20 Mg Tab, 1 TAB PO DAILY, #90 TAB 3 Refills 03/01/25 Ergocalciferol (Vitamin D) 50,000 Unit Cap, 1 CAP PO QWEEKLY 06/22/24 Metoprolol Succinate (Metoprolol Succinate Er) 100 Mg Tab, 1 TAB PO DAILY 06/22/24 Hctz (Hydrochlorothiazide) 25 Mg Tab, 1 TAB PO DAILY 06/22/24 Lisinopril (Lisinopril) 40 Mg Tab, 1 TAB PO DAILY 06/22/24 Nifedipine (Nifedipine Er) 90 Mg Tab, 1 TAB PO DAILY 06/22/24 Metformin Hydrochloride (Metformin Hcl) 1,000 Mg Tab, 1 TAB PO BID 06/22/24 Mode of Arrival: Ambulatory Severity: Moderate Timing: Hours Duration: Since onset Prehospital treatment: None Past Medical History PAST MEDICAL HISTORY: Arthritis, DM, High Lipids, HTN Surgical History: Denies all surgeries 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 Family History Family History: Reviewed,noncontributory to illness Social History Smoker: Non-Smoker Alcohol: Denies ETOH Use Drugs: Denies Drug Use Lives In: Home Constitutional: denies: chills, diaphoresis, fatigue, fever, malaise, sweats, weakness, others EENTM: reports: nose bleeding; denies: blurred vision, double vision, ear bleeding, ear discharge, ear drainage, ear pain, ear ringing, eye pain, eye redness, hearing loss, mouth pain, mouth swelling, nasal discharge, nose congestion, nose pain, photophobia, tearing, throat pain, throat swelling, voice changes, others Respiratory: denies: cough, hemoptysis, orthopnea, SOB at rest, shortness of breath, SOB with excertion, stridor, wheezing, others Cardiovascular: denies: chest pain, dizzy spells, diaphoresis, Dyspnea on exertion, edema, irregular heart beat, left arm pain, lightheadedness, palpitations, PND, syncope, others Gastrointestinal: denies: abdomen distended, abdominal pain, blood streaked bowels, constipated, diarrhea, dysphagia, difficulty swallowing, hematemesis, melena, nausea, poor appetite, poor fluid intake, rectal bleeding, rectal pain, vomiting, others Genitourinary: denies: abnormal vagina bleeding, burning, dyspareunia, dysuria, flank pain, frequency, hematuria, incontinence, pain, , vagina discharge, urgency, others Neurological: denies: dizziness, fainting, headache, left sided numbness, left sided weakness, numbness, paresthesia, pre-existing deficit, right sided numbness, right sided weakness, seizure, speech problems, tingling, tremors, we akness, others Musculoskeletal: denies: back pain, gout, joint pain, joint swelling, muscle pain, muscle stiffness, neck pain, others Integumetry: denies: bruises, change in color, change in hair/nails, dryness, laceration, lesions, lumps, rash, wounds, others Allergic/Immunocompromised: denies: Difficulty Healing, Frequent Infections, Hives, Itching, others Hematologic/Lymphatic: denies: anemia, blood clots, easy bleeding, easy bruising, swollen glands, others Endocrine: denies: excessive hunger, excessive sweating, excessive thirst, excessive urination, flushing, intolerance to cold, intolerance to heat, unexplained weight gain, unexplained weight loss, others Psychiatric: denies: anxiety, bipolar disorder, depression, hopeless, panic disorder, schizophrenia, sleepless, suicidal, others All Other Systems: Reviewed and Negative Physical Exam General Appearance: Moderate Distress, Obese HEENT: PERRL/EOMI, Other (He is boxes from the left nostril) Neck: Full Range of Motion, Non-Tender, Normal, Normal Inspection Respiratory: Chest Non-Tender, Lungs Clear, No Accessory Muscle Use, No Respiratory Distress, Normal Breath Sounds Cardiovascular: No Edema, No JVD, No Murmur, No Gallop, Normal Peripheral Pulses, Regular Rate/Rhythm Breast Exam: Deferred Gastrointestinal: No Organomegaly, Non Tender, No Pulsatile Mass, Normal Bowel Sounds, Soft Genitalia: Deferred Pelvic: Deferred Rectal: Deferred Extremities: No calf tenderness, Normal capillary refill, Normal inspection, Normal range of motion, Non-tender, No pedal edema Neurologic: Alert, manager contact II-XII nml as Tested, No Motor Deficits, Normal Affect, Normal Mood, No Sensory Deficits Cerebellar Function: Normal Reflexes: Normal Skin: Dry, Normal Color, Warm Peripheral Pulses: 1+ carotid (R), 1+ carotid (L) Lymphatic: No Adenopathy Was a procedure done? Was a procedure done?: No Differential Dx Considerations may include: hypertensive urgency, hypertensive crisis, uncontrolled epitaxisis X-Ray, Labs, Meds, VS Vital Signs Date Time Temp Pulse Resp B/P (MAP) Pulse Ox O2 Delivery O2 Flow Rate FiO2 07/13/25 15:08 98.9 95 18 177/84 (115) 99 98.9 07/12/25 00:43 97.3 76 20 137/71 (93) 99 97.3 07/11/25 23:48 179/68 07/11/25 23:30 98.3 71 20 179/68 (105) 99 98.3 07/11/25 22:48 190/98 07/11/25 22:36 89 20 96 Room Air 07/11/25 22:36 85 20 190/98 (128) 100 07/11/25 22:11 97.7 112 16 218/98 97 97.7 Lab Test 07/11/25 22:42 Range/Units White Blood Count 5.6 4.4-10.8 10^3/uL Red Blood Count 5.09 4.0-5.20 10^6/uL Hemoglobin 10.8 L 12.2-16.2 g/dL Hematocrit 35.3 L 36.0-46.0 % Mean Corpuscular Volume 69.4 L 80.0-100.0 fL Mean Corpuscular Hemoglobin 21.2 L 28.0-32.0 pg Mean Corpuscular Hemoglobin Concent 30.6 L 32.0-36.0 g/dL Red Cell Distribution Width 16.4 H 11.8-14.3 % Platelet Count 332 140-450 10^3/uL Mean Platelet Volume 7.9 6.9-10.8 fL Neutrophils (%) (Auto) 31.0 L 37.0-80.0 % Lymphocytes (%) (Auto) 55.5 H 10.0-50.0 % Monocytes (%) (Auto) 10.1 0.0-12.0 % Eosinophils (%) (Auto) 2.7 0.0-7.0 % Basophils (%) (Auto) 0.7 0.0-2.0 % Neutrophils # (Auto) 1.7 1.6-8.6 10 ^3/uL Lymphocytes # (Auto) 3.1 0.4-5.4 10 ^3/uL Monocytes # (Auto) 0.6 0-1.3 10 ^3/uL Eosinophils # (Auto) 0.2 0-0.8 10 ^3/uL Basophils # (Auto) 0 0-0.2 10 ^3/uL Nucleated Red Blood Cells 0.1 % Sodium Level 142 136-145 mmol/L Potassium Level 3.8 3.5-5.1 mmol/L Chloride Level 108 H 98-107 mmol/L Carbon Dioxide Level 27 20-31 mmol/L Anion Gap 7 5-15 Blood Urea Nitrogen 13 9-23 mg/dL Creatinine 0.79 0.550-1.02 mg/dL Glomerular Filtration Rate Calc 82 >90 mL/min BUN/Creatinine Ratio 16.5 10.0-20.0 Serum Glucose 175 H 74-106 mg/dL Calcium Level 9.1 8.7-10.4 mg/dL Troponin I High Sensitivity 4 </=34 ng/L B-Type Natriuretic Peptide 43.92 0-100 pg/mL X-Ray, Labs, Meds, VS Comment Course in the emergency department patient came in with a profuse nosebleed to the left nostril potential Three to the with Surgicel and repeating the maneuver several times until the patient some bleeding Patient will be discharged with asurgicel insulin during left nostril The bleeding has stopped Time of 1ST Reevaluation: 12:30 Reevaluation 1ST: Unchanged Patient Education/Counseling: Diagnosis, Treatment Family Education/Counseling: Diagnosis, Treatment SEPSIS Sepsis Screen Date sepsis recognized/suspect: Jul 11, 2025 Time Sepsis recognized/suspect: 2240 Recent Procedure: No On Antibiotic Therapy: No Respiratory Rate >20: No Heart Rate >90: No Temp<36 C (96.8 F) or >38.3 C: No SBP <90 or MAP <65 mmHG: No New Acute Mental Status Change: No Is the patient on CPAP, BIPAP,: No Physician Orders Electrocardigram (07/11/25 22:36) Vital Signs Date Time Temp Pulse Resp B/P (MAP) Pulse Ox O2 Delivery O2 Flow Rate FiO2 07/13/25 15:08 98.9 95 18 177/84 (115) 99 98.9 07/12/25 00:43 97.3 76 20 137/71 (93) 99 97.3 07/11/25 23:48 179/68 07/11/25 23:30 98.3 71 20 179/68 (105) 99 98.3 07/11/25 22:48 190/98 07/11/25 22:36 89 20 96 Room Air 07/11/25 22:36 85 20 190/98 (128) 100 07/11/25 22:11 97.7 112 16 218/98 97 97.7 Laboratory Tests Test 07/11/25 22:42 White Blood Count 5.6 10^3/uL (4.4-10.8) Departure 1 Departure Time of Disposition: 00:09 Impression: Primary Impression: Hypertension Additional Impressions: Anemia Nosebleed Disposition: 01 HOME / SELF CARE / HOMELESS Condition: Stable Additional Instructions: ED DISCHARGE INSTRUCTIONS Instructions: Please read all instructions provided in this packet carefully. Please be sure to take all medications daily as prescribed. Your labs show that you are anemic today, please follow up with the primary care provider for further treatment. Although you have been discharged from the Emergency Department, this does not mean that you have a "clean bill of health". No definitive diagnosis for your symptoms has been made today. It is possible that you are in the process of developing a serious illness. This is why you must return to the ED without fail if any new or worsening symptoms (especially if your symptoms include chest pain , trouble breathing, abdominal pain, fever, headache, confusion, trouble seeing, or trouble walking) It is also very important that you see a primary care provider (PCP) within the next 3-5 days to follow up. If you are unable to get an appointment, return to the ED for re-evaluation. You had elevated blood pressure reading today. Untreated high blood pressure can have serious consequences. However, you need a follow-up appointment to recheck your blood pressure to determine whether or not you need treatment. Make an appointment with your primary care provider for this within the next week. Nosebleeds: Care Instructions Overview Nosebleeds are common, especially if you have colds or allergies. Many things can cause a nosebleed. Some nosebleeds stop on their own with pressure. Others need packing. Some get cauterized (sealed). If you have gauze or other packing materials in your nose, you will need to follow up with your doctor to have the packing removed. You may need more treatment if you get nosebleeds a lot. Follow-up care is a hassan part of your treatment and safety. Be sure to make and go to all appointments, and call your doctor if you are having problems. It's also a good idea to know your test results and keep a list of the medicines you take. How can you care for yourself at home? If you get another nosebleed: Gently blow your nose to clear any clots. Sit up and tilt your head slightly forward. This keeps blood from going down your throat. Use your thumb and index finger to pinch the front, soft part of your nose shut for at least 15 minutes. Use a clock. Do not check to see if the bleeding has stopped before the 15 minutes are up. If the bleeding has not stopped, pinch your nose shut for another 10 to 15 minutes. Using a nasal decongestant spray such as oxymetazoline (Afrin) before pinching your nose can also help to stop the bleeding. Be safe with medicines. Read and follow all instructions on the label. When the bleeding has stopped, try not to pick, rub, or blow your nose for several hours. Avoiding these things helps keep your nose from bleeding again. To prevent nosebleeds Do not blow your nose too hard. Try not to lift or strain after a nosebleed. Raise your head on a pillow while you sleep. Put a thin layer of a saline- or water-based nasal gel, such as NasoGel, inside your nose. Put it on the septum, which divides your nostrils. This will prevent dryness that can cause nosebleeds. Use a vaporizer or humidifier to add moisture to your bedroom. Follow the directions for cleaning the machine. Do not use aspirin, ibuprofen (Advil, Motrin), or naproxen (Aleve) for 36 to 48 hours after a nosebleed unless your doctor tells you to. You can use acetaminophen (Tylenol) for pain relief. Talk to your doctor about stopping any other medicines you are taking. Some medicines may make you more likely to get a nosebleed. Do not use cold medicines or nasal sprays without first talking to your doctor. They can make your nose dry. Do not snort tobacco, drugs, or any other drying substances up your nose. When should you call for help? Call 911 anytime you think you may need emergency care. For example, call if: You passed out (lost consciousness). Call your doctor now or seek immediate medical care if: Your nose is still bleeding after you have pinched the nose shut 2 times for 15 minutes each time (30 minutes total). There is a lot of blood running down the back of your throat even after you pinch your nose and tilt your head forward. You feel weak or lightheaded. You have a nosebleed after a head injury. Watch closely for changes in your health, and be sure to contact your doctor if: You get nosebleeds often, even if they stop. You do not get better as expected. Discharged With: Self Critical Care Note Critical Care Time?: No Stability Stability form required: No Heart Score Heart Score: Heart Score Response (Comments) Value History N/A 0 EKG N/A 0 Age >65 2 Risk Factors 1 or 2 risk factors 1 Troponin Normal limit 0 Total 3 I personally scribed for ANGELIA CHAVEZ MD ([email or web address]) on 07/13/25 at 17:23. Electronically submitted by Angelic Bronson ([email or web address]). ANGELIA CHAVEZ MD Jul 13, 2025 17:23
== END 2025-07-12 00:44 | disposition home or self-care (01) ==
LOC: EEVIPCON 22:08 → ER 22:08
DX: D64.9 Anemia, unspecified (principal); I10 Essential (primary) hypertension; R04.0 Epistaxis; E11.9 Type 2 diabetes mellitus without complications; E78.5 Hyperlipidemia, unspecified; M19.90 Unspecified osteoarthritis, unspecified site; Z79.84 Long term (current) use of oral hypoglycemic drugs; Z79.899 Other long term (current) drug therapy
CPT/HCPCS: 36415; 80048; 83880; 84484; 85025; 99291

== ENCOUNTER → 2025-07-13 | Emergency (ER) | payer BC, MEDICARE ==
[~2025-07-13] MED LIST changes: +OXYM-15
== END ==
LOC: ER 13:00
DX: R04.0 Epistaxis (principal)